=== PATIENT | male | born 1940 | race Caucasian/White ===

== ENCOUNTER → 2017-02-20 | Outpatient (CLI) | payer OTHER ==
[~2017-02-20] MED LIST: IOPAMIDOL (ISOVUE-M 300) 15 ML VIAL ONE; LIDO/EPI 1% **for epidural** 30 ML SDV ONE; LIDOCAINE 1% 300 MG/30 ML SDV ONE
== END ==
LOC: FIMAGING 09:00
PROVIDERS: ATTEND Neurological Surgery
PROC: 3E0S3KZ Introduction of Other Diagnostic Substance into Epidural Space, Percutaneous Approach (ICD-10-PCS; principal; 2017-02-20)
DX: M54.2 Cervicalgia (principal); M54.5 Low back pain; R26.89 Other abnormalities of gait and mobility; M50.021 Cervical disc disorder at C4-C5 level with myelopathy; M48.02 Spinal stenosis, cervical region; M50.30 Other cervical disc degeneration, unspecified cervical region; M48.06 Spinal stenosis, lumbar region; M51.36 Other intervertebral disc degeneration, lumbar region; M51.37 Other intervertebral disc degeneration, lumbosacral region; M48.07 Spinal stenosis, lumbosacral region; K80.20 Calculus of gallbladder without cholecystitis without obstruction
CPT/HCPCS: 62305; 72126; 72132; 72270; Q9967

== ENCOUNTER 2017-05-09 05:14 | Inpatient (IN) | payer OTHER ==
--- NOTE | 2017-05-08 15:11 | PDGENHP ---
History and Physical - History of Present Illness CONTROL # [id number] STATUS APPROVED SPECIALITY CONTRACT ADMINISTRATION MANAGER PATIENT JAMIR MARINA DATE 1940 [ 76 yy 5 mm 0 dd ] ENC DATE 03/01/2017 1:00:00 PM PROVIDER JANNET GRANDA APPROVED BY JANNET LIZAMA ON 03/05/2017 9:30:20 AM REVISION DATE CC/HPI Describe the reason for today's visit Lumbar Spine Mr Jamir is a 76 year old gentleman who has been experiencing painful symptoms for approximately 4-5 years. He describes his symptoms as lower back pain which is equal on both sides. He also feels he has bilateral leg weakness. He states he has been falling a lot but has not fallen in about one month. He states he usually falls backwards. Srini has a vagal nerve stimulator that was placed by Dr Arias for depression. He presents with his today to review a CT of the lumbar spine. Srini feels his symptoms are constant and they get worse with standing. Srini participated in PT which was not beneficial. He has not received injections or taken oral steroids. He does not taken NSAIDs, he is on Coumadin , his director electrical engineering is Dr Aly. He presents today with new CT myleogram of lumbar and cervical spine. He has been seen by Dr Gilman for his balance issues which she ruled out with some testing. She recommended he follow up with opth regarding his pupils not reacting to light and unequal. He does not feel his leg weakness has improved but his lower back pain has decreased slightly in severity. ALLERGIES [ 1 ] Date Added: 02/05/2017 10:47:04 AM Allergy: MORPHINE [ 2 ] Date Added: 02/05/2017 10:47:25 AM Allergy: PENICILLINS [ 3 ] Date Added: 02/05/2017 10:49:01 AM Allergy: SHELLFISH ALLERGY Note(s): ALLERGIC TO BIVALVIA VITALS [ 1 ] Date: 03/01/2017 12:34:51 PM Height : 74.00 inch. 187.96 cm Weight : 222.00 lbs. 100.7 kg B M I: 28.50 Temperature : 98.20 F. 36.78 C Blood Pressure : 116 / 84 Pulse: 99 beats/minute PE Neurological Orientation Oriented to: Person Place Situation Time Upper Extremity Deltoid (C5-6) Bilaterally 5/5 Biceps-Brachialis (C5-6) Bilaterally 5/5 Triceps (C7-8) Bilaterally 5/5 Wrist extensors (C7-8) Bilaterally 5/5 Wrist Flexors (C7-8 T1) Bilaterally 5/5 Digits extensors (C6-8) Bilaterally 5/5 Thenar (C8-T) Bilaterally 5/5 Interossel (C8-T1) Bilaterally 5/5 Lower Extremity Iliosoas (L1-4) Bilaterally 5/5 Gluteus opal (L5-S1) Bilaterally 5/5 Quadriceps (L2-4) Bilaterally 5/5 Hamstrings (L4-5, S1) Bilaterally 5/5 Peronel (L4-5, S1) Bilaterally 5/5 Tibialis anterior (L4-5, S1) Bilaterally 5/5 Gasterocnemius-soleus (L5,S1-2) Bilaterally 5/5 Toes-extensors (L4-5,S1) Bilaterally 5/5 Toes-flexors (L5-S1-2) Bilaterally 5/5 Extensor Hallucis Longus Bilaterally 5/5 Gait Assissted Wheelchair ADDITIONAL ENCOUNTER INFORMATION This visit was face to face and 15-24 min long and over 50% of the time was spent on counseling and coordination of care. CPT/ICD 60563 - OFFICE OUTPATIENT VISIT 15 MINUTES [Qty] = 1 Click here for External Information related to this code Click here for Additional Information related to this code M48.06-Spinal stenosis, lumbar region Click here for External Information related to this code Click here for Additional Information related to this code M51.36-Other intervertebral disc degeneration, lumbar region Click here for External Information related to this code Click here for Additional Information related to this code M54.5-Low back pain Click here for External Information related to this code Click here for Additional Information related to this code R26.89-Other abnormalities of gait and mobility Click here for External Information related to this code Click here for Additional Information related to this code M48.02-Spinal stenosis, cervical region ASMT/PLAN/REFERRALS Srini Duarte has leg weakness and terrible low back pain. he did not have a concerning compressive lesion in his cervical spine and he is still seeing neurology for a full workup but he has really terrible spinal stenosis at L45 and i suggested that he have surgery for this henry. He will need cardiac clearance. M48.02 - Spinal stenosis, cervical region M48.06 - Spinal stenosis, lumbar region M51.36 - Other intervertebral disc degeneration, lumbar region M54.5 - Low back pain R26.89 - Other abnormalities of gait and mobility History Information - Allergies/Home Medication List Allergies/Adverse Reactions: Shellfish *RETIRED-05/27/12 [Shellfish] Allergy (Severe, Verified 03/13/17 15:59 ) Anaphylaxis fluoxetine [Fluoxetine] Allergy (Intermediate, Verified 03/13/17 15:59) Rash penicillin V [Penicillin V] Allergy (Intermediate, Verified 03/13/17 15:59) Rash Home Medications: AMLODIPINE BESYLATE/BENAZEPRIL 03/13/17 [Last Taken Unknown] Abilify 03/13/17 [Last Taken Unknown] Allopurinol 03/13/17 [Last Taken Unknown] Benicar Hct 40-25 mg Tablet 03/13/17 [Last Taken Unknown] Bystolic 03/13/17 [Last Taken Unknown] Fetzima 03/13/17 [Last Taken Unknown] Klor-Con 10 meq (RX) 03/13/17 [Last Taken Unknown] LAMOTRIGINE 03/13/17 [Last Taken Unknown] LORAZEPAM 03/13/17 [Last Taken Unknown] Liothyronine Sodium 03/13/17 [Last Taken Unknown] Risperidone 03/13/17 [Last Taken Unknown] Tricor 03/13/17 [Last Taken Unknown] Warfarin Sodium 03/13/17 [Last Taken Unknown] Wellbutrin Xl 03/13/17 [Last Taken Unknown] I have personally reviewed and updated: family history, medical history, social history, surgical history - Social History Smoking Status: Never smoked
[2017-05-09] MEDS ORDERED: ceFAZolin 2 GM/DEXTROSE 100 ML IV ONE (05:46)
[2017-05-09] MEDS ORDERED: LIDOCAINE 1% 2 ML INJ ID PRN (05:48)
[2017-05-09] MEDS ORDERED: LR 1,000 ML IV ONE (05:48)
[2017-05-09 06:27] LABS: % IMMATURE GRANULYOCYTES 0.6 % (0.0-1.1); ABSOLUTE IMMATURE GRANULOCYTES 0.04 10^3/uL (0.00-0.10); ADD DIFF? NO; ADD MORPH? NO; ADD SCAN? NO; ATYPICAL LYMPHOCYTE FLAG 0 (0-99); FRAGMENT RBC FLAG 0 (0-99); HEMATOCRIT 35.9 % (40.0-51.0); HEMOGLOBIN 12.7 g/dL (13.7-17.5); LEFT SHIFT FLG 0 (0-99); LIPEMIA HEMOLYSIS FLAG 90 (0-99); MEAN CELL HEMOGLOBIN CONCENTR. 35.4 g/dL (32.4-36.7); MEAN CELL VOLUME 90.4 fL (81.5-99.8); PLATELET CLUMPS FLAG 0 (0-99); PLATELET COUNT 393 10^3/uL (150-400); RED BLOOD CELL COUNT 3.97 10^6/uL (4.40-6.38); RED CELL DISTRIBUTION WIDTH 14.1 % (11.5-15.2)
[2017-05-09 06:37] LABS: ANION GAP 16 mEq/L (8-16); CALCIUM 10.1 mg/dL (8.5-10.4); CARBON DIOXIDE 23 mEq/l (22-31); CHLORIDE 99 mEq/L (97-110); GLOMERULAR FILTRATION RATE > 60; GLUCOSE 132 mg/dL (70-100); INR 1.1 (0.83-1.16); POTASSIUM 3.5 mEq/L (3.5-5.2); PROTIME(PATIENT) 14.1 SEC (12.0-15.0); SODIUM 138 mEq/L (134-144)
[2017-05-09] MEDS ORDERED: THROMBIN (BOVINE) 5,000 UNIT VIAL TP ONE (06:48)
[2017-05-09] MEDS ORDERED: DEPO METHYLPREDNISOLONE 40 MG/ML SDV ONE (06:48)
[2017-05-09] MEDS ORDERED: BACITRACIN 50,000 UNITS/10 ML SYR IRR ONE (06:48)
[2017-05-09] MEDS ORDERED: CHLORHEXIDINE GLUC HIBICLENS 118 ML BTL TP ONE (06:48)
--- NOTE | 2017-05-09 06:53 | PDHPUP ---
History & Physical Update H&P update statement: This history and physical update is based on an assessment of the patient which was completed after admission or registration (within 24 hours), but prior to the surgery/procedure. H&P update: H&P reviewed & patient examined, no change in patient's condition since H&P completed
--- NOTE | 2017-05-09 07:12 | PDANEPAE ---
ANE History of Present Illness here for lami. Weakness and falls from lumbar stenosis ANE Past Medical History - Cardiovascular History Hx Hypertension: Yes Hx Arrhythmias: No Hx Chest Pain: No Hx Coronary Artery / Peripheral Vascular Disease: No Hx CHF / Valvular Disease: No Hx Palpitations: No Cardiovascular History Comment: A fib- on Warfarin - Pulmonary History Hx COPD: No Hx Asthma/Reactive Airway Disease: No Hx Recent Upper Respiratory Infection: No Hx Oxygen in Use at Home: No O2 in Use at Home (L/minute): 2L NC at night w/ CPAP Hx Sleep Apnea: Yes Sleep Apnea Screening Result - Last Documented: Positive Pulmonary History Comment: CPAP x 15 yrs - Neurologic History Hx Cerebrovascular Accident: No Hx Seizures: No Hx Dementia: No - Endocrine History Hx Diabetes: No Hypothyroid: No Hyperthyroid: No Obesity: moderate - Renal History Hx Renal Disorders: No - Liver History Hx Hepatic Disorders: No - Neurological & Psychiatric Hx Hx Neurological and Psychiatric Disorders: Yes Neurological / Psychiatric History Comment: bipolar- managed w/VNS and Rx. Low back pain. Hx of falling. - Cancer History Cancer History Comment: Prostate- tx w/radiation will undergo more tx 05-03. - Congenital Disorder History Hx Congenital Disorders: No - GI History Hx Gastrointestinal Disorders: Yes Gastrointestinal History Comment: occ heartburn - Chronic Pain History Chronic Pain: Yes (back) - Surgical History Prior Surgeries: L total knee,. R leg ORIF. L shoulder rotator cuff x2. VNS ( vagus nerve stimulator)used for bipolar (+ battery change appro 2014). L Lg toe "shattered". Prostatectomy 2009 ANE Review of Systems Review of systems is: negative - Exercise capacity Exercise capacity: <4 METS METS (RN): 4 METS ANE Patient History - Allergies Allergies/Adverse Reactions: Shellfish *RETIRED-05/27/12 [Shellfish] Allergy (Severe, Verified 03/13/17 15:59 ) Anaphylaxis fluoxetine [Fluoxetine] Allergy (Intermediate, Verified 03/13/17 15:59) Rash penicillin V [Penicillin V] Allergy (Intermediate, Verified 03/13/17 15:59) Rash - Home Medications Home Medications: AMLODIPINE BESYLATE/BENAZEPRIL 03/13/17 [Last Taken 05/08/17] Abilify 03/13/17 [Last Taken 05/08/17] Allopurinol 03/13/17 [Last Taken 05/08/17] Benicar Hct 40-25 mg Tablet 03/13/17 [Last Taken 05/08/17] Bystolic 03/13/17 [Last Taken 05/08/17] Fetzima 03/13/17 [Last Taken 05/08/17 20:00] Klor-Con 10 meq (RX) 03/13/17 [Last Taken 05/08/17] LAMOTRIGINE 03/13/17 [Last Taken 05/08/17] LORAZEPAM 03/13/17 [Last Taken 05/08/17] Liothyronine Sodium 03/13/17 [Last Taken 05/08/17] Risperidone 03/13/17 [Last Taken 05/08/17] Tricor 03/13/17 [Last Taken 05/08/17] Warfarin Sodium 03/13/17 [Last Taken 05/05/17] Wellbutrin Xl 03/13/17 [Last Taken 05/08/17] - NPO status NPO Status: no food or drink >8 hours NPO Since - Liquids (Date): 05/08/17 NPO Since - Liquids (Time): 20:00 NPO Since - Solids (Date): 05/08/17 NPO Since - Solids (Time): 18:00 - Smoking Hx Smoking Status: Never smoked ANE Labs/Vital Signs - Labs Result Diagrams: 05/09/17 06:20 05/09/17 06:20 - Vital Signs Height: 190.5 cm Weight: 99.79 kg ANE Physical Exam - Airway Neck exam: FROM Mallampati Score: Class 2 Mouth exam: normal dental/mouth exam - Pulmonary Pulmonary: no respiratory distress - Cardiovascular Cardiovascular: regular rate and rhythym - ASA Status ASA Status: III ANE Anesthesia Plan Anesthesia Plan: general endotracheal anesthesia
[2017-05-09] MEDS ORDERED: BUPIVACAINE/EPI 0.5% 30 ML SDV ONE (07:15)
[2017-05-09] MEDS ORDERED: fentaNYL 100 MCG/2 ML INJ ONE (07:17)
[2017-05-09] MEDS ORDERED: PROPOFOL/EMULSION 500 MG/50 ML BOTTLE IV ONE (07:17)
[2017-05-09] MEDS ORDERED: MAGNESIUM HYDROXIDE 30 ML UDCUP PO PRN (07:40)
[2017-05-09] MEDS ORDERED: HYDROCODONE/APAP 5/325 TAB PO PRN (07:40)
[2017-05-09] MEDS ORDERED: BISACODYL 10 MG SUPP PR PRN (07:40)
[2017-05-09] MEDS ORDERED: LACTULOSE 20 GM/30 ML UDCUP PO PRN (07:40)
[2017-05-09] MEDS ORDERED: oxyCODONE IR 5 MG TAB PO PRN (07:40)
[2017-05-09] MEDS ORDERED: POLYETHYLENE GLYCOL 3350 17 GM PKT PO PRN (07:40)
[2017-05-09] MEDS ORDERED: ONDANSETRON 4 MG/2 ML VIAL IVP PRN (07:40)
[2017-05-09] MEDS ORDERED: NS W/ 20 KCl/L 1,000 ML IV SCH (07:45)
--- NOTE | 2017-05-09 07:54 | CPEKG ---
Heart Rate: 136 RR Interval: 441 QRSD Interval: 98 QT Interval: 352 QTC Interval: 530 QRS [place]: -29 T Wave [place]: 75 EKG Severity - ABNORMAL ECG - EKG Impression: ATRIAL FIBRILLATION, V-RATE 101-161 EKG Impression: BORDERLINE LEFT AXIS DEVIATION EKG Impression: BORDERLINE T ABNORMALITIES, LATERAL LEADS EKG Impression: PROLONGED QT INTERVAL Electronically Signed By: Sky Spears 09-May-2017 15:32:52
--- NOTE | 2017-05-09 09:30 | SOAPPROG ---
SOAP Progress Note Assessment/Plan: Pt cancelled due to Afib. Call placed to Hospitalist (spoke with Emmie Sparks) to see in consult Spoke with Simeon Proctor MD with Cardiology to see as well 05/09/17 09:28 Objective: Vital Signs Temp Pulse Resp BP Pulse Ox 36.4 C 103 H 20 102/68 94 05/09/17 07:58 05/09/17 07:58 05/09/17 07:58 05/09/17 07:58 05/09/17 07:58 Laboratory Results 05/09/17 06:20 05/09/17 06:20 PT 14.1 SEC (12.0-15.0) 05/09/17 06:20 INR 1.10 (0.83-1.16) 05/09/17 06:20 ICD10 Worksheet Patient Problems: Problems Problem Status Onset Afib Acute Lumbar radicular pain Acute Lumbar stenosis Acute - ICD10 Problem Qualifiers (1) Lumbar stenosis (2) Lumbar radicular pain (3) Afib Qualifiers: Atrial fibrillation type: A
[2017-05-09] MEDS ORDERED: OLMESARTAN PO SCH (10:30)
[2017-05-09] MEDS ORDERED: HYDROCHLOROTHIAZIDE PO SCH (10:30)
[2017-05-09] MEDS ORDERED: [UNRECOGNIZED DRUG - OTHER] PO SCH (10:30)
[2017-05-09] MEDS ORDERED: NON-FORMULARY NEW DRUG (Potassium Chloride [Klor-Con 10] 10 MEQ) PO SCH (10:30)
[2017-05-09] MEDS ORDERED: NEBIVOLOL HCL 20 MG PO SCH (10:30)
--- NOTE | 2017-05-09 10:33 | PDGENHP ---
History and Physical - Chief Complaint Acute back pain - History of Present Illness Primary diesel mechanic helper: Dr. Aly Primary neurologist: Dr. Gilman Primary orthopedist: Dr. Tamayo HPI: 76-year-old male presenting with acute back pain characterized as constant , exacerbated with standing, no relief after trial of physical therapy, resulting in associated mechanical falls with retropulsion in the setting of bilateral lower extremity paresis. The patient began experiencing these falls approximately 1 month ago and they have been recurrent, resulting in numerous presentations to the [facility] [place] 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 Due to the high fall risk and inability to manage the pain in his back, the patient has been scheduled for a neurosurgical procedure at L4-L5 for severe spinal stenosis on 05/09/2017. During preop evaluation, the patient was noted to be in rapid AFib and he was transferred to the medical floor, surgery was postponed. Of note, the patient did not take any of his home medications on the morning of this presentation. The patient reports that he has a symptomatic atrial fibrillation and he is unaware how fast his heart rate is at home, he is unaware when he is in atrial fibrillation. He does report that while he has been at [facility], he has not been experiencing complications of rapid AFib; he otherwise denies any infectious symptoms presently. History Information - Allergies/Home Medication List Allergies/Adverse Reactions: Shellfish *RETIRED-05/27/12 [Shellfish] Allergy (Severe, Verified 03/13/17 15:59 ) Anaphylaxis fluoxetine [Fluoxetine] Allergy (Intermediate, Verified 03/13/17 15:59) Rash penicillin V [Penicillin V] Allergy (Intermediate, Verified 03/13/17 15:59) Rash Home Medications: ARIPiprazole [Abilify 2 mg (*)] 1 mg PO DAILY 05/09/17 [Last Taken 05/08/17] Allopurinol [Allopurinol 300 MG (RX)] 300 mg PO DAILY 05/09/17 [Last Taken 05/08] Amlodipine Besylate/Benazepril [Amlodipine-Benazepril 10-20 mg] 1 each PO DAILY 05/09/17 [Last Taken 05/08/17] Cholecalciferol Vit D3 [Vitamin D3 (*)] 2,000 units PO DAILY 05/09/17 [Last Taken 05/08/17] FENOFIBRATE 160 mg PO HS 05/09/17 [Last Taken 05/08/17] Levomilnacipran HCl [Fetzima] 80 mg PO HS 05/09/17 [Last Taken 05/08/17] Liothyronine Sodium [Cytomel 25 mcg (*)] 50 mcg PO DAILY 05/09/17 [Last Taken ] Minocycline HCl [Minocin] 100 mg PO DAILY 05/09/17 [Last Taken 05/08/17] Nebivolol HCl [Bystolic] 20 mg PO DAILY 05/09/17 [Last Taken 05/08/17] Olmesartan/Hydrochlorothiazide [Benicar Hct 40-25 mg Tablet] 1 each PO DAILY [Last Taken 05/08/17] Potassium Chloride [Klor-Con 10] 10 meq PO DAILY 05/09/17 [Last Taken 05/08/17] Warfarin Sodium [Coumadin 5MG (*)] 2.5 mg PO SA@16 05/09/17 [Last Taken 05/05/17 ] Warfarin Sodium [Coumadin 5MG (*)] 5 mg PO SUMOTUWETHFR@16 05/09/17 [Last Taken 05/04/17] buPROPion SR [Wellbutrin 150mg SR (*)] 300 mg PO DAILY 05/09/17 [Last Taken ] lamoTRIgine [Lamictal] 200 mg PO DAILY 05/09/17 [Last Taken 05/08/17] traMADol [Ultram 50 mg (*)] 50 - 100 mg PO Q4-6PRN PRN 05/09/17 [Last Taken ] I have personally reviewed and updated: family history, medical history, social history, surgical history - Past Medical History atrial fibrillation (Persistent with cardioversions in 2009), hypertension Additional medical history: Anisocoria. Obstructive sleep apnea on CPAP. GERD. Prostate cancer with radiation therapy. Bipolar disease. Chronic lower back pain secondary to severe spinal stenosis. Right upper extremity wound infection with recent wound VAC removal - Surgical History Additional surgical history: Right humerus fracture repair attempt this past week. Left total knee replacement. Right ORIF. Left shoulder x2. Vagal nerve stimulator. Prostate surgery 2009 - Family History Additional family history: No family history of venous thromboembolism, his father had a CVA - Social History Smoking Status: Never smoked Alcohol Use: Occasionally (None recent) Drug Use: None Additional social history: Lives in [place] Review of Systems ROS: 10pt was reviewed & negative except for what was stated in HPI & below Muscolosketal: Reports: back pain Physical Exam Temp Pulse Resp BP Pulse Ox 36.9 C 147 H 18 142/96 H 96 05/09/17 09:31 05/09/17 09:31 05/09/17 09:31 05/09/17 09:31 05/09/17 09:31 Constitutional: no apparent distress, appears nourished, not in pain, chronically ill appearing Eyes: anicteric sclera, EOMI, other (Anisocoria) Ears, Nose, Mouth, Throat: moist mucous membranes, hearing normal, ears appear normal, no oral mucosal ulcers Cardiovascular: irregularly irregular, tachycardia, edema (Right upper extremity with rapid), No systolic murmur Respiratory: no respiratory distress, no rales or rhonchi, clear to auscultation Gastrointestinal: normoactive bowel sounds, soft, non-tender abdomen, no palpable masses Genitourinary: no bladder fullness, no bladder tenderness Skin: other (No erythema around the right upper extremity surgical site, no induration) Neurologic: AAOx3, sensation intact bilaterally, No weakness, No facial droop Psychiatric: interacting appropriately, not anxious, not encephalopathic, thought process linear Lab Data & Imaging Review 05/09/17 06:20 05/09/17 06:20 WBC 6.77 10^3/uL (3.80-9.50) 05/09/17 06:20 RBC 3.97 10^6/uL (4.40-6.38) L 05/09/17 06:20 Hgb 12.7 g/dL (13.7-17.5) L 05/09/17 06:20 Hct 35.9 % (40.0-51.0) L 05/09/17 06:20 MCV 90.4 fL (81.5-99.8) 05/09/17 06:20 MCH 32.0 pg (27.9-34.1) 05/09/17 06:20 MCHC 35.4 g/dL (32.4-36.7) 05/09/17 06:20 RDW 14.1 % (11.5-15.2) 05/09/17 06:20 Plt Count 393 10^3/uL (150-400) 05/09/17 06:20 MPV 10.0 fL (8.7-11.7) 05/09/17 06:20 Neut % (Auto) 72.2 % (39.3-74.2) 05/09/17 06:20 Lymph % (Auto) 15.8 % (15.0-45.0) 05/09/17 06:20 [place] % (Auto) 8.6 % (4.5-13.0) 05/09/17 06:20 Eos % (Auto) 1.9 % (0.6-7.6) 05/09/17 06:20 Baso % (Auto) 0.9 % (0.3-1.7) 05/09/17 06:20 Nucleat RBC Rel Count 0.0 % (0.0-0.2) 05/09/17 06:20 Absolute Neuts (auto) 4.89 10^3/uL (1.70-6.50) 05/09/17 06:20 Absolute Lymphs (auto) 1.07 10^3/uL (1.00-3.00) 05/09/17 06:20 Absolute Monos (auto) 0.58 10^3/uL (0.30-0.80) 05/09/17 06:20 Absolute Eos (auto) 0.13 10^3/uL (0.03-0.40) 05/09/17 06:20 Absolute Basos (auto) 0.06 10^3/uL (0.02-0.10) 05/09/17 06:20 Absolute Nucleated RBC 0.00 10^3/uL (0-0.01) 05/09/17 06:20 Immature Gran % 0.6 % (0.0-1.1) 05/09/17 06:20 Immature Gran # 0.04 10^3/uL (0.00-0.10) 05/09/17 06:20 PT 14.1 SEC (12.0-15.0) 05/09/17 06:20 INR 1.10 (0.83-1.16) 05/09/17 06:20 Sodium 138 mEq/L (134-144) 05/09/17 06:20 Potassium 3.5 mEq/L (3.5-5.2) 05/09/17 06:20 Chloride 99 mEq/L (97-110) 05/09/17 06:20 Carbon Dioxide 23 mEq/l (22-31) 05/09/17 06:20 Anion Gap 16 mEq/L (8-16) 05/09/17 06:20 BUN 15 mg/dL (7-23) 05/09/17 06:20 Creatinine 1.0 mg/dL (0.7-1.3) 05/09/17 06:20 Estimated GFR > 60 05/09/17 06:20 Glucose 132 mg/dL (70-100) H 05/09/17 06:20 Calcium 10.1 mg/dL (8.5-10.4) 05/09/17 06:20 Visualized and Interpreted EKG results: Yes EKG Interpretation: Positive for: other (Atrial fibrillation with a rate of around 130, no ST depressions) Assessment & Plan Assessment: 76-year-old male presents with severe spinal stenosis requiring neurosurgery, complicated by persistent atrial fibrillation with acute rapid ventricular response Plan: 1. Persistent atrial fibrillation. Acute RVR, new problem this provider, further workup indicated. Most likely precipitating cause is holding the patient's Bystolic this morning, as the patient reports no acute episodes of RVR while at [facility], and the patient is chronically asymptomatic from his AFib -reviewed outside records including discharge summary by Dr. Law from 2016 and it does not mention any recent complications w/ Afib RVR -there is no evidence of infection on physical exam -would recommend giving his home dose of Bystolic 20 mg now, and dosing tomorrow morning prior to possible surgery to avoid recurrence -recommend continuing to monitor the patient's electrolytes and CBC to ensure that there are no electrolyte abnormalities or indicators of infection -will also recommend on wrapping his right upper extremity to expose the arm and ensure there are no areas of cellulitis, no areas of edema which would warrant right upper extremity ultrasound for further evaluation -give 1 dose of oral potassium now -does not require DC cardioversion at this time -continue holding Coumadin -appreciate Cardiology consultation 2. Severe spinal stenosis. Acute pain, tramadol as needed, recommend proceeding with surgery tomorrow morning if AFib RVR is controlled -discussed with Manny Guardado, we agreed that hospital Medicine will serve as the primary service for this patient, neurosurgery will consult, providing the spinal surgery as soon as safely possible -bowel regimen ordered -incentive spirometer -SCDs 3. Bipolar disease. Chronic, continue home medications 4. Obstructive sleep apnea. CPAP at night 5. Right upper extremity fracture. Patient has recently had surgery for this and reportedly the pin was unsuccessful -continue to monitor for areas of cellulitis, DVT -continue to wrap to reduce edema 6. Hypertension. Chronic, continue patient's home medications Diet. Regular, NPO after midnight Prophylaxis. High risk patient, SCDs, hold pharmacologic given upcoming surgery Code. Full per patient, is his MDPOA Disposition. Anticipated discharge uncertain this time, anticipated length stay is greater than 48 hours warranting inpatient admission status for reasonable medical necessity including severe spinal stenosis requiring inpatient lumbar surgery complicated by persistent atrial fibrillation with acute rapid ventricular response requiring immediate attention.
[2017-05-09] MEDS: SENNOSIDES/DOCUSATE SODIUM TAB PO SCH ×2 (10:51→20:00)
[2017-05-09] MEDS: ALLOPURINOL 300 MG TAB PO SCH (10:52)
[2017-05-09] MEDS: CHOLECALCIFEROL VIT D3 1,000 UNITS TAB PO SCH (10:52)
[2017-05-09] MEDS: buPROPion SR 150 MG TAB PO SCH (10:52)
[2017-05-09] MEDS ORDERED: BENAZEPRIL HCL 20 MG TAB PO ONE (11:00)
[2017-05-09] MEDS ORDERED: POTASSIUM CL 10 MEQ TAB PO SCH (11:00)
[2017-05-09] MEDS: LIOTHYRONINE SODIUM 25 MCG TAB PO SCH (11:08)
[2017-05-09] MEDS: ARIPiprazole 2 MG TAB PO SCH (11:08)
[2017-05-09] MEDS: MINOCYCLINE HCL 50 MG CAP PO SCH (11:08)
[2017-05-09] MEDS: NEBIVOLOL HCL 5 MG TAB PO SCH (11:18)
[2017-05-09] MEDS: POTASSIUM CL 10 MEQ TAB PO SCH (12:05)
[2017-05-09] MEDS: lamoTRIgine 100 MG TAB PO SCH (12:05)
[2017-05-09] MEDS: PANTOPRAZOLE SODIUM 40 MG TAB PO SCH (16:57)
[2017-05-09] MEDS: LEVOMILNACIPRAN HCL 80 MG PO SCH (20:00)
[2017-05-09] MEDS ORDERED: Fenofibrate [Fenofibrate] 160 MG PO SCH (21:00)
[2017-05-10 05:51] LABS: % IMMATURE GRANULYOCYTES 0.8 % (0.0-1.1); ABSOLUTE IMMATURE GRANULOCYTES 0.04 10^3/uL (0.00-0.10); ADD DIFF? NO; ADD MORPH? NO; ADD SCAN? NO; ATYPICAL LYMPHOCYTE FLAG 0 (0-99); FRAGMENT RBC FLAG 0 (0-99); HEMOGLOBIN 11.9 g/dL (13.7-17.5); LEFT SHIFT FLG 0 (0-99); LIPEMIA HEMOLYSIS FLAG 90 (0-99); MEAN CELL HEMOGLOBIN 31.3 pg (27.9-34.1); MEAN CELL VOLUME 92.1 fL (81.5-99.8); MEAN PLATELET VOLUME 10.3 fL (8.7-11.7); PLATELET CLUMPS FLAG 0 (0-99); PLATELET COUNT 377 10^3/uL (150-400); RED CELL DISTRIBUTION WIDTH 14.1 % (11.5-15.2)
[2017-05-10 06:12] LABS: ANION GAP 15 mEq/L (8-16); CALCIUM 9.8 mg/dL (8.5-10.4); CARBON DIOXIDE 24 mEq/l (22-31); CHLORIDE 100 mEq/L (97-110); CREATININE 1.1 mg/dL (0.7-1.3); GLOMERULAR FILTRATION RATE > 60; GLUCOSE 122 mg/dL (70-100); POTASSIUM 3.5 mEq/L (3.5-5.2); SODIUM 139 mEq/L (134-144)
--- NOTE | 2017-05-10 07:52 | NEUSURGPN ---
Assessment/Plan: Assessment: 76 yo male with BLE weakness that has surgery pending today for a L4 /5 laminectomy and decompression Plan: -pending surgery today -NPO after breakfast -PT/OT -pt marked and consents on chart - updated -call with any questions or concerns -IM on board-appreciate input and care -warning sings given -call with any issues 05/09/17 09:28 Subjective: Awake and alert. NAD. Eating/drinking and voiding. No f/c/n/v/d. Objective: AAO x 3, PERRLA/EOMI no droop CN 2-12 grossly intact +lt touch 5/5 BUE/BLE = CDI Neuro Check Frequency: per routine Urinary Catheter in Place: No - Physician Discussed Patient with .: Kevin Patient Seen by : Kevin Neurosurgery Physical Exam - Vitals, I&O, Labs I and O 05/09/17 05/10/17 05/11/17 05:59 05:59 05:59 Intake Total 350 Output Total 400 Balance -50 Weight 99.79 kg Intake: Oral (ml) 350 Output: Urine (ml) 400 Urinal 400 Vital Signs Temp Pulse Resp BP Pulse Ox 36.6 C 88 16 99/71 L 98 05/09/17 23:39 05/10/17 04:00 05/10/17 04:00 05/10/17 04:00 05/10/17 04:00 Laboratory Results 05/10/17 04:28 05/10/17 04:28 ICD10 Worksheet Patient Problems: Problems Problem Status Onset Afib Acute Lumbar radicular pain Acute Lumbar stenosis Acute - ICD10 Problem Qualifiers (1) Lumbar stenosis (2) Lumbar radicular pain (3) Afib Qualifiers: Atrial fibrillation type: A
[2017-05-10] MEDS: SENNOSIDES/DOCUSATE SODIUM TAB PO SCH ×2 (08:28→22:02)
[2017-05-10] MEDS: LIOTHYRONINE SODIUM 25 MCG TAB PO SCH (08:28)
[2017-05-10] MEDS: POTASSIUM CL 10 MEQ TAB PO SCH (08:29)
[2017-05-10] MEDS: CHOLECALCIFEROL VIT D3 1,000 UNITS TAB PO SCH (08:29)
[2017-05-10] MEDS: MINOCYCLINE HCL 50 MG CAP PO SCH (08:30)
[2017-05-10] MEDS: buPROPion SR 150 MG TAB PO SCH (08:30)
[2017-05-10] MEDS: NEBIVOLOL HCL 5 MG TAB PO SCH (08:31)
[2017-05-10] MEDS: PANTOPRAZOLE SODIUM 40 MG TAB PO SCH (08:31)
[2017-05-10] MEDS: ALLOPURINOL 300 MG TAB PO SCH (08:32)
[2017-05-10] MEDS: lamoTRIgine 100 MG TAB PO SCH (08:32)
[2017-05-10] MEDS: ARIPiprazole 2 MG TAB PO SCH (08:35)
--- NOTE | 2017-05-10 12:42 | HOSPPROG ---
Hospitalist Progress Note Assessment/Plan: 76-year-old male admitted because of falls and severe low back pain. Prior to admission the patient has had frequent falls is 1 of which resulted in a fracture of his right humerus. He is currently preoperative for a lumbar fusion. Patient is new to me today. -low back pain with radiculopathy. Patient is scheduled for lumbar fusion today. Patient is medically cleared for surgery. He has no complaints of chest pain or shortness of breath. Rhythm is currently stable in atrial fibrillation with good rate control. -atrial fibrillation, persistent: Currently in good rate control on beta blockers. Anticoagulation has been with Coumadin and his INR is currently normal. His last Coumadin dose was 5 days [employer]OP RANCH HAND. Monitor shows persistent atrial fibrillation with good rate control in the 70s and 80s. -hypertension: Good control -right humeral fracture status post plating. Arm is tender and painful and has limited range of motion but is healing well. The massiel have been removed as they were in place for 10 days. -plan: Patient is medically cleared for surgery today. We will continue to follow the patient postoperatively. Anticoagulation should be started as soon as possible postoperatively. We will consult with Neurosurgery regarding the timing restarting Coumadin. Subjective: No complaints of chest pain shortness of breath. Positive complaint of low back pain. Sutures are in place on the right shoulder and of wound is healing well. The sutures will be removed. Objective: Vital Signs Temp Pulse Resp BP Pulse Ox 36.4 C 88 24 H 121/78 H 97 05/10/17 08:18 05/10/17 08:18 05/10/17 08:18 05/10/17 08:18 05/10/17 08:18 Laboratory Results 05/10/17 04:28 05/10/17 04:28 05/09/17 05/10/17 05/11/17 05:59 05:59 05:59 Intake Total 350 240 Output Total 400 Balance -50 240 PT 14.1 SEC (12.0-15.0) 05/09/17 06:20 INR 1.10 (0.83-1.16) 05/09/17 06:20 - Time Spent With Patient Time Spent with Patient: greater than 35 minutes Time Spent with Patient: Greater than 35 minutes spent on this patients care, greater than 50% of time spent counseling, educating, and coordinating care regarding the above mentioned plan. - Pending Discharge Pending Discharge Within 24 Hours: No Pending Discharge Within 48 Hours: No - Physical Exam Constitutional: no apparent distress Eyes: PERRL Ears, Nose, Mouth, Throat: moist mucous membranes, hearing normal Cardiovascular: systolic murmur, irregularly irregular Respiratory: no respiratory distress, no rales or rhonchi, clear to auscultation , other (Patient wearing his CPAP mask.) Gastrointestinal: normoactive bowel sounds, soft, non-tender abdomen, no palpable masses Genitourinary: no bladder fullness Skin: warm Musculoskeletal: generalized weakness, other (Right arm is tender and painful as it is postoperative of a plating approximately 10 days [employer]OP RANCH HAND. Distal pulses 2 + skin warm and dry capillary refill good) Neurologic: AAOx3, CN II-XII Intact Psychiatric: interacting appropriately ICD10 Worksheet Patient Problems: Problems Problem Status Onset Afib Acute Lumbar radicular pain Acute Lumbar stenosis Acute
--- NOTE | 2017-05-10 14:37 | PDANEPAE ---
ANE History of Present Illness Severe lumbar spinal stenosis ANE Past Medical History - Cardiovascular History Hx Hypertension: Yes Hx Arrhythmias: No Hx Chest Pain: No Hx Coronary Artery / Peripheral Vascular Disease: No Hx CHF / Valvular Disease: No Hx Palpitations: No Cardiovascular History Comment: A fib- on Warfarin - Pulmonary History Hx COPD: No Hx Asthma/Reactive Airway Disease: No Hx Recent Upper Respiratory Infection: No Hx Oxygen in Use at Home: No O2 in Use at Home (L/minute): 2L NC at night w/ CPAP Hx Sleep Apnea: Yes Sleep Apnea Screening Result - Last Documented: Positive Pulmonary History Comment: CPAP x 15 yrs - Neurologic History Hx Cerebrovascular Accident: No Hx Seizures: No Hx Dementia: No - Endocrine History Hx Diabetes: No Hypothyroid: No Hyperthyroid: No Obesity: moderate - Renal History Hx Renal Disorders: No - Liver History Hx Hepatic Disorders: No - Neurological & Psychiatric Hx Hx Neurological and Psychiatric Disorders: Yes Neurological / Psychiatric History Comment: bipolar- managed w/VNS and Rx. Low back pain. Hx of falling. - Cancer History Cancer History Comment: Prostate- tx w/radiation will undergo more tx 05-03. - Congenital Disorder History Hx Congenital Disorders: No - GI History Hx Gastrointestinal Disorders: Yes Gastrointestinal History Comment: occ heartburn - Chronic Pain History Chronic Pain: Yes (back) - Surgical History Prior Surgeries: L total knee,. R leg ORIF. L shoulder rotator cuff x2. VNS ( vagus nerve stimulator)used for bipolar (+ battery change appro 2014). L Lg toe "shattered". Prostatectomy 2009 ANE Review of Systems - Exercise capacity METS (RN): 4 METS ANE Patient History - Allergies Allergies/Adverse Reactions: Shellfish *RETIRED-05/27/12 [Shellfish] Allergy (Severe, Verified 03/13/17 15:59 ) Anaphylaxis fluoxetine [Fluoxetine] Allergy (Intermediate, Verified 03/13/17 15:59) Rash penicillin V [Penicillin V] Allergy (Intermediate, Verified 03/13/17 15:59) Rash - Home Medications Home Medications: ARIPiprazole [Abilify 2 mg (*)] 1 mg PO DAILY 05/09/17 [Last Taken 05/08/17] Allopurinol [Allopurinol 300 MG (RX)] 300 mg PO DAILY 05/09/17 [Last Taken 05/08] Amlodipine Besylate/Benazepril [Amlodipine-Benazepril 10-20 mg] 1 each PO DAILY 05/09/17 [Last Taken 05/08/17] Cholecalciferol Vit D3 [Vitamin D3 (*)] 2,000 units PO DAILY 05/09/17 [Last Taken 05/08/17] FENOFIBRATE 160 mg PO HS 05/09/17 [Last Taken 05/08/17] Levomilnacipran HCl [Fetzima] 80 mg PO HS 05/09/17 [Last Taken 05/08/17] Liothyronine Sodium [Cytomel 25 mcg (*)] 50 mcg PO DAILY 05/09/17 [Last Taken ] Minocycline HCl [Minocin] 100 mg PO DAILY 05/09/17 [Last Taken 05/08/17] Nebivolol HCl [Bystolic] 20 mg PO DAILY 05/09/17 [Last Taken 05/08/17] Olmesartan/Hydrochlorothiazide [Benicar Hct 40-25 mg Tablet] 1 each PO DAILY [Last Taken 05/08/17] Potassium Chloride [Klor-Con 10] 10 meq PO DAILY 05/09/17 [Last Taken 05/08/17] Warfarin Sodium [Coumadin 5MG (*)] 2.5 mg PO SA@16 05/09/17 [Last Taken 05/05/17 ] Warfarin Sodium [Coumadin 5MG (*)] 5 mg PO SUMOTUWETHFR@16 05/09/17 [Last Taken 05/04/17] buPROPion SR [Wellbutrin 150mg SR (*)] 300 mg PO DAILY 05/09/17 [Last Taken ] lamoTRIgine [Lamictal] 200 mg PO DAILY 05/09/17 [Last Taken 05/08/17] traMADol [Ultram 50 mg (*)] 50 - 100 mg PO Q4-6PRN PRN 05/09/17 [Last Taken ] - NPO status NPO Since - Liquids (Date): 05/10/17 NPO Since - Liquids (Time): 08:30 NPO Since - Solids (Date): 05/10/17 NPO Since - Solids (Time): 08:30 - Smoking Hx Smoking Status: Never smoked - Alcohol Use Alcohol Use: Occasionally (None recent) ANE Labs/Vital Signs - Labs Result Diagrams: 05/10/17 04:28 05/10/17 04:28 - Vital Signs Blood Pressure: 108/77 Heart Rate: 76 Respiratory Rate: 14 O2 Sat (%): 96 Height: 185.42 cm Weight: 90.718 kg ANE Physical Exam - Airway Neck exam: decreased ROM Mallampati Score: Class 2 Mouth exam: normal dental/mouth exam, mnoaco - Pulmonary Pulmonary: no respiratory distress - Cardiovascular Cardiovascular: irregularly irregular - ASA Status ASA Status: III ANE Anesthesia Plan Anesthesia Plan: general endotracheal anesthesia
[2017-05-10] MEDS ORDERED: THROMBIN (BOVINE) 5,000 UNIT VIAL TP ONE (14:41)
[2017-05-10] MEDS ORDERED: BUPIVACAINE 0.25% 30 ML SDV ONE (14:41)
[2017-05-10] MEDS ORDERED: DEPO METHYLPREDNISOLONE 40 MG/ML SDV ONE (14:42)
[2017-05-10] MEDS ORDERED: BACITRACIN 50,000 UNITS/10 ML SYR IRR ONE ×2 (14:42→16:15)
[2017-05-10] MEDS ORDERED: BUPIVACAINE/EPI 0.5% 30 ML SDV ONE (14:49)
[2017-05-10] MEDS ORDERED: fentaNYL 100 MCG/2 ML INJ ONE ×2 (16:01→17:52)
[2017-05-10] MEDS ORDERED: ROCURONIUM 50 MG/5 ML VIAL ONE (16:02)
[2017-05-10] MEDS ORDERED: PROPOFOL 200 MG/20 ML VIAL ONE (16:02)
[2017-05-10] MEDS ORDERED: REMIFENTANIL HCL 1 MG VIAL ONE (16:14)
[2017-05-10] MEDS ORDERED: PROPOFOL/EMULSION 500 MG/50 ML BOTTLE IV ONE (16:14)
[2017-05-10] MEDS ORDERED: ceFAZolin 2 GM/DEXTROSE 100 ML IV ONE (16:30)
[2017-05-10] MEDS ORDERED: PHENYLEPHRINE HCL 100 MCG/ML SYR ONE ×2 (16:33→17:07)
[2017-05-10] MEDS ORDERED: ONDANSETRON 4 MG/2 ML VIAL IVP PRN (16:53)
[2017-05-10] MEDS ORDERED: HYDROmorphONE/DILAUDID 1 MG/ML INJ IVP PRN (16:53)
[2017-05-10] MEDS ORDERED: PROMETHAZINE HCL 25 MG/ML INJ IVP PRN (16:53)
[2017-05-10] MEDS ORDERED: NALOXONE HCL 0.4 MG/ML INJ IVP PRN (16:53)
[2017-05-10] MEDS ORDERED: fentaNYL 100 MCG/2 ML INJ IVP PRN (16:53)
[2017-05-10] MEDS ORDERED: DEXAMETHASONE 4 MG/ML VIAL ONE (17:52)
[2017-05-10] MEDS ORDERED: ONDANSETRON 4 MG/2 ML VIAL ONE (17:52)
[2017-05-10] MEDS ORDERED: SUGAMMADEX SODIUM 200 MG/2 ML VIAL IVP ONE (17:57)
[2017-05-10] MEDS ORDERED: diphenhydrAMINE 25 MG CAP PO PRN (18:18)
[2017-05-10] MEDS ORDERED: NS 1,000 ML IV SCH (18:30)
--- NOTE | 2017-05-10 18:34 | POSTANESTH ---
Post Anesthetic Evaluation Cardiovascular Status: Normal, Stable Respiratory Status: Normal, Stable Level of Consciousness/Mental Status: Alert and Oriented, Mildly Sleepy, Arousable Pain Control: Adequate, Prn Tx Ordered Nausea/Vomiting Control: Adequate, Prn Tx Ordered Complications Possibly Related to Anesthesia: None Noted
--- NOTE | 2017-05-10 18:38 | SOAPPROG ---
SOAP Progress Note Assessment/Plan: Post Op Visit: S: Awake and alert. NAD. Pt with expected lower back pain O: AFVSS/PERRLA/EOMI no droop CN 2-12 grossly intact +lt touch ROCÍO x 4 CDI A/P: 76 yo male that is s/p L4/5 laminectomy -orders in -call with any questions or concerns -pt understands and agrees 05/10/17 18:23 Objective: Vital Signs Temp Pulse Resp BP Pulse Ox 36.4 C 76 14 108/77 96 05/10/17 14:47 05/10/17 16:52 05/10/17 16:52 05/10/17 16:52 05/10/17 16:52 Laboratory Results 05/10/17 04:28 05/10/17 04:28 05/09/17 05/10/17 05/11/17 05:59 05:59 05:59 Intake Total 350 240 Output Total 400 Balance -50 240 PT 14.1 SEC (12.0-15.0) 05/09/17 06:20 INR 1.10 (0.83-1.16) 05/09/17 06:20 ICD10 Worksheet Patient Problems: Problems Problem Status Onset Afib Acute Lumbar radicular pain Acute Lumbar stenosis Acute - ICD10 Problem Qualifiers (1) Lumbar stenosis (2) Lumbar radicular pain (3) Afib Qualifiers: Atrial fibrillation type: A
--- NOTE | 2017-05-10 19:06 | GOP ---
[f rep st] OPERATIVE REPORT DATE OF OPERATION: 05/10/2017 SURGEON: Rik Brown MD NEUROSURGEON: Rik Brown MD CITY EDITOR: Manny ALBRIGHT. PREOPERATIVE DIAGNOSIS: Severe lumbar stenosis L4-5; lumbar degenerative disk disease, leg weakness . POSTOPERATIVE DIAGNOSIS: Severe lumbar stenosis L4-5; lumbar degenerative disk disease, leg weaknes s. PROCEDURE PERFORMED: Bilateral lumbar laminectomy L4-5 with decompression of the bilateral L5 nerve roots and the central thecal sac (35332), microscope. FINDINGS: ESTIMATED BLOOD LOSS: 25 cc. INDICATIONS: The patient is an elderly gentleman, who lives up in [place] and had been falling m ore and more lately. It is possible that his gait disturbance is related to severe lumbar stenosis. He actually fell and broke his arm and recently had surgery for this and was hospitalized as an in patient up in [place] and then transferred down here for surgery. Our plan was to do surgery yes terday but he had uncontrolled AFib and he was admitted to the hospital. A cardiac consultation was obtained and this problem was corrected, and we put him on the schedule for this the evening to go ahead and treat the lumbar stenosis. He had massiel in his right arm from his fracture and that bull bhargavi and he asked us to remove those. There were a couple massiel that the nurses were trying to re move from the area and they could not remove these earlier today and they asked us to do this under anesthesia and we told them that we would. The risk of the spinal surgery was discussed. He knew t here was a chance it may fail to eliminate any of his problems and that he may not see any improveme nt. He knew there was risk of infection as well as risk of CSF leak and/or nerve injury, and he wan jere to proceed despite the risks. He knew the surgical risks were higher given his premorbid status as well as his advanced age, and he accepted these risks. DESCRIPTION OF PROCEDURE: Patient was taken to the operating room and placed in supine position. G eneral anesthesia was begun. He was flipped prone onto the Rao frame. Care was taken to positio n him. Particularly, care was taken for positioning of the right arm. He had an axillary bandage a nd dressing in place. Apparently, he had a wound VAC at that location and he had massiel in the rig ht shoulder as well as massiel down the lateral aspect of the right arm. We began to remove the sta ples and there was some drainage of seropurulent material from the incision over the right arm itsel f. The shoulder incision appeared fine. There was no evidence of cellulitis. The skin was well ap proximated and it was unclear if there was really an infection. We did remove the massiel without d ifficulty. The ones in the shoulder, a couple of them had been tangled and were more difficult to r emove. These were removed with hemostats. He was sterilely prepped and draped in the usual fashion. A 2.5 cm incision was made above the L4-5 interspace. The subcutaneous tissue was dissected using Bovie cautery down to the fascia and a sub periosteal dissection was made down the L4 lamina and the rostral L5 lamina. Localizing x-ray was naila moon. A self-retaining retractor was placed. We then shot another localizing x-ray. We removed th e inferior L4 spinous process and a small portion of the rostral L5 spinous process. Under the scop e, we drilled bilateral laminae at L4-5 with bilateral medial facetectomies. We opened the ligament um flavum and decompressed the thecal sac. There was severe bilateral compression of the thecal sac due to facet arthropathy and ligamentum flavum hypertrophy, and we did decompress from the L5 pedic le to the L5 pedicle, all the way up to the inferior L4 pedicle. A nice decompression was obtained. The left side was somewhat more straight forward than the right. The right had a large really chuckie y prominent facet arthropathy, and it was very adherent to the dura. We took care to dissect this a way from the dura and we decompressed the L5 root in the lateral portion of the thecal sac all the w ay up into the foramen. For the exiting L4 nerve root, a foraminotomy was performed. We did likewi se on the left for the exiting L4 nerve root. We were happy with the quality of our decompression. The thecal sac now was completely open and clear from above the L4-[address] down to the m id pedicle of L5. We irrigated with antibiotic saline solution and closed the incision in multiple layers using Vicryl sutures. Steri-Strips were applied to the skin. The patient was reversed from anesthesia, extubated, and transferred to the recovery room in stable condition. COMPLICATIONS: None. /[id number]/MODL
[2017-05-10] MEDS: traMADol 50 MG TAB PO PRN (20:53)
[2017-05-10] MEDS: BENAZEPRIL HCL 20 MG TAB PO SCH (21:58)
[2017-05-10] MEDS: LEVOMILNACIPRAN HCL 80 MG PO SCH (21:58)
[2017-05-10] MEDS: FAMOTIDINE 20 MG TAB PO SCH (21:58)
[2017-05-10] MEDS: FENOFIBRATE 145 MG TAB PO SCH (22:01)
[2017-05-10] MEDS: ceFAZolin 2 GM/DEXTROSE 100 ML IV SCH (22:02)
[2017-05-11 05:21] LABS: % IMMATURE GRANULYOCYTES 0.5 % (0.0-1.1); ABSOLUTE IMMATURE GRANULOCYTES 0.04 10^3/uL (0.00-0.10); ADD DIFF? NO; ADD MORPH? NO; ADD SCAN? NO; ATYPICAL LYMPHOCYTE FLAG 0 (0-99); FRAGMENT RBC FLAG 0 (0-99); HEMATOCRIT 32.8 % (40.0-51.0); HEMOGLOBIN 11.3 g/dL (13.7-17.5); LEFT SHIFT FLG 0 (0-99); LIPEMIA HEMOLYSIS FLAG 90 (0-99); MEAN CELL HEMOGLOBIN 31.8 pg (27.9-34.1); MEAN CELL HEMOGLOBIN CONCENTR. 34.5 g/dL (32.4-36.7); MEAN CELL VOLUME 92.4 fL (81.5-99.8); MEAN PLATELET VOLUME 10.3 fL (8.7-11.7); PLATELET CLUMPS FLAG 10 (0-99); PLATELET COUNT 356 10^3/uL (150-400); RED BLOOD CELL COUNT 3.55 10^6/uL (4.40-6.38); RED CELL DISTRIBUTION WIDTH 14.1 % (11.5-15.2)
[2017-05-11 05:34] LABS: ANION GAP 13 mEq/L (8-16); CALCIUM 9.7 mg/dL (8.5-10.4); CARBON DIOXIDE 24 mEq/l (22-31); CHLORIDE 103 mEq/L (97-110); CREATININE 1.1 mg/dL (0.7-1.3); GLOMERULAR FILTRATION RATE > 60; GLUCOSE 129 mg/dL (70-100); POTASSIUM 4.2 mEq/L (3.5-5.2); SODIUM 140 mEq/L (134-144)
[2017-05-11] MEDS: traMADol 50 MG TAB PO PRN ×3 (06:40→20:21)
--- NOTE | 2017-05-11 07:45 | NEUSURGPN ---
Assessment/Plan: A/P: 76 yo male that is s/p L4/5 laminectomy POD1 -Pain controlled with tramadol, recommended ice to incision area if needed -retention manager consulted for help with placement once cleared by medicine from cardiac issues - Elbow cultures NGTD - Discussed with Dr. Brown -PT/OT -PLease notify NS with any change in neuro/motor exam Subjective: low back pain. Denies any new leg weakness, numbness or tingling Objective: NAD A&Ox3 MAEx4 5/ and equal in BLE. RUE limited to pain and patient states that that arm is "broken". LUE /. Dressing c/d/i - Physician Discussed Patient with : Kevin Neurosurgery Physical Exam - Vitals, I&O, Labs I and O 05/10/17 05/11/17 05/12/17 05:59 05:59 05:59 Intake Total 350 2870 Output Total 400 575 225 Balance -50 2295 -225 Weight 99.79 kg 90.718 kg Intake: Oral (ml) 350 595 IV Intake (ml) 1600 IV Infused (ml) 675 Ns 1,000 ml @ 75 mls/hr 675 IV CONT ELLIE Rx#: [id number] Output: Urine (ml) 400 550 225 Urinal 400 550 225 Estimated Blood Loss (ml) 25 Other: Intake Quantity NPO Sufficient Number of Voids Urinal 1 Microbiology 05/10/17 16:30 Gram Stain - Final Elbow - Eswab Vital Signs Temp Pulse Resp BP Pulse Ox 36.6 C 96 16 123/75 H 98 05/11/17 04:00 05/11/17 04:00 05/11/17 04:00 05/11/17 04:00 05/11/17 04:00 Laboratory Results 05/11/17 04:09 05/11/17 04:09 ICD10 Worksheet Patient Problems: Problems Problem Status Onset Afib Acute Lumbar radicular pain Acute Lumbar stenosis Acute
[2017-05-11] MEDS: MINOCYCLINE HCL 50 MG CAP PO SCH (09:28)
[2017-05-11] MEDS: SENNOSIDES/DOCUSATE SODIUM TAB PO SCH ×2 (09:29→20:22)
[2017-05-11] MEDS: NEBIVOLOL HCL 5 MG TAB PO SCH (09:29)
[2017-05-11] MEDS: BENAZEPRIL HCL 20 MG TAB PO SCH (09:30)
[2017-05-11] MEDS: CHOLECALCIFEROL VIT D3 1,000 UNITS TAB PO SCH (09:30)
[2017-05-11] MEDS: LIOTHYRONINE SODIUM 25 MCG TAB PO SCH (09:30)
[2017-05-11] MEDS: ARIPiprazole 2 MG TAB PO SCH (09:31)
[2017-05-11] MEDS: buPROPion SR 150 MG TAB PO SCH (09:31)
[2017-05-11] MEDS: lamoTRIgine 100 MG TAB PO SCH (09:32)
[2017-05-11] MEDS: ALLOPURINOL 300 MG TAB PO SCH (09:32)
[2017-05-11] MEDS: POTASSIUM CL 10 MEQ TAB PO SCH (09:33)
[2017-05-11] MEDS: FAMOTIDINE 20 MG TAB PO SCH ×2 (09:33→20:21)
[2017-05-11] MEDS: PANTOPRAZOLE SODIUM 40 MG TAB PO SCH (09:33)
[2017-05-11] MEDS: METHOCARBAMOL 750 MG TAB PO PRN (10:55)
--- NOTE | 2017-05-11 17:03 | HOSPPROG ---
Hospitalist Progress Note Assessment/Plan: 76-year-old male admitted because of falls and severe low back pain. Prior to admission the patient has had frequent falls , of which resulted in a fracture of his right humerus. He is currently preoperative for a lumbar fusion. -low back pain with radiculopathy. Patient underwent a bilateral lumbar laminectomy and his pain is much improved at this time. -atrial fibrillation, persistent: Currently in good rate control on beta blockers. Anticoagulation has been with Coumadin and his INR is currently normal. His last Coumadin dose was 6 days [employer]. Monitor shows persistent atrial fibrillation with good rate control in the 70s and 80s. -anticoagulation: Case discussed with Neurosurgery. We can start full-dose anticoagulation tomorrow on 05/12. At that time I will begin Lovenox and Coumadin. -hypertension: Good control -right humeral fracture status post plating. Arm is tender and painful and has limited range of motion but is healing well. The massiel have been removed as they were in place for 10 days. -plan: Patient doing well postop the lumbar laminectomy. He continues in stable atrial fibrillation. Will restart anticoagulation tomorrow. -disposition: Inpatient rehab is being considered a. This would probably be the best disposition for him and case management is working on that. Time: 35 minutes Subjective: Reports his back pain is much improved and considerably less. He continues to have right arm pain denies chest pain or shortness of breath cough or fever Objective: Vital Signs Temp Pulse Resp BP Pulse Ox 36.2 C 101 H 16 108/76 98 05/11/17 11:30 05/11/17 11:30 05/11/17 11:30 05/11/17 11:30 05/11/17 11:30 Microbiology 05/10/17 16:30 Gram Stain - Final Elbow - Eswab Laboratory Results 05/11/17 04:09 05/11/17 04:09 05/10/17 05/11/17 05/12/17 05:59 05:59 05:59 Intake Total 350 2870 Output Total 400 575 225 Balance -50 2295 -225 PT 14.1 SEC (12.0-15.0) 05/09/17 06:20 INR 1.10 (0.83-1.16) 05/09/17 06:20 - Time Spent With Patient Time Spent with Patient: greater than 35 minutes Time Spent with Patient: Greater than 35 minutes spent on this patients care, greater than 50% of time spent counseling, educating, and coordinating care regarding the above mentioned plan. - Pending Discharge Pending Discharge Within 24 Hours: No Pending Discharge Within 48 Hours: No - Physical Exam Constitutional: no apparent distress, chronically ill appearing Eyes: PERRL, anicteric sclera Ears, Nose, Mouth, Throat: moist mucous membranes, hearing normal Cardiovascular: irregularly irregular, pulses symmetric bilaterally, other ( Monitor shows atrial fibrillation in good rate control with a ventricular response in the 70s and 80s.) Respiratory: no respiratory distress, no rales or rhonchi, clear to auscultation , reduced air movement Gastrointestinal: normoactive bowel sounds, soft, non-tender abdomen, no palpable masses Genitourinary: no bladder fullness Skin: warm Musculoskeletal: generalized weakness Neurologic: AAOx3, CN II-XII Intact Psychiatric: interacting appropriately ICD10 Worksheet Patient Problems: Problems Problem Status Onset Lumbar stenosis Acute Lumbar radicular pain Acute Afib Acute
[2017-05-11] MEDS: FENOFIBRATE 145 MG TAB PO SCH (20:20)
[2017-05-11] MEDS: LEVOMILNACIPRAN HCL 80 MG PO SCH (20:23)
[2017-05-12] MEDS: LIOTHYRONINE SODIUM 25 MCG TAB PO SCH (07:25)
--- NOTE | 2017-05-12 08:10 | SOAPPROG ---
SOAP Progress Note Assessment/Plan: A/P: 76 yo male that is s/p L4/5 laminectomy POD2 - Pain controlled with tramadol, patient sleeping quietly - d/c to SNF on Sunday - Elbow cultures still NGTD - PT/OT - PLease notify NS with any change in neuro/motor exam 05/12/17 08:08 Subjective: patient sleeping well, no complaints per nursing Objective: Vital Signs Temp Pulse Resp BP Pulse Ox 36.7 C 90 18 113/60 93 05/11/17 23:24 05/11/17 23:24 05/11/17 23:24 05/11/17 23:24 05/11/17 23:24 Microbiology 05/10/17 16:30 Gram Stain - Final Elbow - Eswab Laboratory Results 05/11/17 04:09 05/11/17 04:09 05/11/17 05/12/17 05/13/17 05:59 05:59 05:59 Intake Total 2870 1920 Output Total 575 775 Balance 2295 1145 PT 14.1 SEC (12.0-15.0) 05/09/17 06:20 INR 1.10 (0.83-1.16) 05/09/17 06:20 patient sleeping, exam deferred, discussed with nursing who report no issues - Pending Discharge Pending Discharge Within 24 Hours: No Pending Discharge Within 48 Hours: Yes Pending Discharge Date: 05/14/17 Pending Discharge Time: 11:00 ICD10 Worksheet Patient Problems: Problems Problem Status Onset Afib Acute Lumbar radicular pain Acute Lumbar stenosis Acute
[2017-05-12] MEDS: buPROPion SR 150 MG TAB PO SCH (09:23)
[2017-05-12] MEDS: SENNOSIDES/DOCUSATE SODIUM TAB PO SCH ×2 (09:24→21:11)
[2017-05-12] MEDS: BENAZEPRIL HCL 20 MG TAB PO SCH (09:24)
[2017-05-12] MEDS: MINOCYCLINE HCL 50 MG CAP PO SCH (09:24)
[2017-05-12] MEDS: ARIPiprazole 2 MG TAB PO SCH (09:25)
[2017-05-12] MEDS: NEBIVOLOL HCL 5 MG TAB PO SCH (09:26)
[2017-05-12] MEDS: FAMOTIDINE 20 MG TAB PO SCH ×2 (09:26→21:11)
[2017-05-12] MEDS: CHOLECALCIFEROL VIT D3 1,000 UNITS TAB PO SCH (09:31)
[2017-05-12] MEDS: lamoTRIgine 100 MG TAB PO SCH (09:31)
[2017-05-12] MEDS: ALLOPURINOL 300 MG TAB PO SCH (09:31)
[2017-05-12] MEDS: PANTOPRAZOLE SODIUM 40 MG TAB PO SCH (09:31)
[2017-05-12] MEDS: POTASSIUM CL 10 MEQ TAB PO SCH (09:31)
--- NOTE | 2017-05-12 11:13 | HOSPPROG ---
Hospitalist Progress Note Assessment/Plan: 76-year-old male admitted because of falls and severe low back pain. Prior to admission the patient has had frequent falls , of which resulted in a fracture of his right humerus. Patient is status post a lumbar laminectomy on 05 10 and has been doing well. -low back pain with radiculopathy. Patient underwent a bilateral lumbar laminectomy and his pain is much improved at this time. Pain today is much improved -atrial fibrillation, persistent: Currently in good rate control on beta blockers. Anticoagulation has been with Coumadin and his INR is currently normal. 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 Monitor shows persistent atrial fibrillation with good rate control in the 70s and 80s. Review of monitor on the PCU shows he maintains atrial fibrillation in a good controlled rate without significant ectopy. -anticoagulation: Case discussed with Neurosurgery. We can start full-dose anticoagulation tomorrow on 05/12. Coumadin and Lovenox started today for full dose anticoagulation. -hypertension: Good control -right humeral fracture status post plating. Arm is tender and painful and has limited range of motion but is healing well. The massiel have been removed as they were in place for 10 days. -obstructive sleep apnea syndrome: Patient uses oxygen at night with his CPAP and this will be continued. He has his own CPAP machine. -anemia with a current hemoglobin of 11 without signs of blood loss. The anemia is probably of chronic disease -plan: Patient doing well postop the lumbar laminectomy. He continues in stable atrial fibrillation. Anticoagulation restarted today. -disposition: Patient will be discharged to [facility] rehab [facility] when a bed is available. This is expected by Lucia on 05/15 Time: 35 minutes Subjective: Reports he is feeling improved with less back pain. The right arm continues to be painful but is also improving. No complaints of chest pain shortness of breath fever cough nausea vomiting or dysuria. Objective: Vital Signs Temp Pulse Resp BP Pulse Ox 36.7 C 97 18 129/84 H 99 05/12/17 08:00 05/12/17 09:26 05/12/17 08:00 05/12/17 09:05/12/17 08:00 Microbiology 05/10/17 16:30 Gram Stain - Final Elbow - Eswab Laboratory Results 05/11/17 04:09 05/11/17 04:09 08/05/12/17 05/13/17 05:59 05:59 05:59 Intake Total 2870 1920 Output Total 575 775 Balance 2295 1145 PT 14.1 SEC (12.0-15.0) 05/09/17 06:20 INR 1.10 (0.83-1.16) 05/09/17 06:20 - Time Spent With Patient Time Spent with Patient: greater than 35 minutes Time Spent with Patient: Greater than 35 minutes spent on this patients care, greater than 50% of time spent counseling, educating, and coordinating care regarding the above mentioned plan. - Pending Discharge Pending Discharge Within 24 Hours: No Pending Discharge Within 48 Hours: Yes Pending Discharge Date: 05/14/17 Pending Discharge Time: 11:00 - Physical Exam Constitutional: no apparent distress, chronically ill appearing Eyes: PERRL, anicteric sclera Ears, Nose, Mouth, Throat: moist mucous membranes, hearing normal Cardiovascular: systolic murmur, irregularly irregular, other (His review of rhythm shows he is in atrial fibrillation and at times in sinus rhythm but primarily [place] atrial fibrillation without significant ectopy. Rate is well controlled.) Respiratory: no respiratory distress, no rales or rhonchi, reduced air movement , inspiratory crackles (A few inspiratory crackles are heard at the bases and incentive spirometer has been ordered) Gastrointestinal: normoactive bowel sounds, soft, non-tender abdomen, no palpable masses Genitourinary: no bladder fullness Skin: warm Musculoskeletal: generalized weakness Neurologic: AAOx3, CN II-XII Intact Psychiatric: interacting appropriately ICD10 Worksheet Patient Problems: Problems Problem Status Onset Lumbar stenosis Acute Lumbar radicular pain Acute Afib Acute
[2017-05-12] MEDS: ENOXAPARIN 100 MG/ML SYR SC SCH ×2 (12:12→21:12)
[2017-05-12] MEDS: traMADol 50 MG TAB PO PRN (14:15)
[2017-05-12] MEDS: WARFARIN SODIUM 5 MG TAB PO SCH (15:25)
[2017-05-12] MEDS: METHOCARBAMOL 750 MG TAB PO PRN (17:48)
[2017-05-12] MEDS: ACETAMINOPHEN 325 MG TAB PO PRN ×2 (18:46→23:07)
[2017-05-12] MEDS: FENOFIBRATE 145 MG TAB PO SCH (21:11)
[2017-05-12] MEDS: LEVOMILNACIPRAN HCL 80 MG PO SCH (21:12)
[2017-05-13] MEDS: ONDANSETRON DISINTEGRATING 4 MG TAB PO PRN (00:39)
[2017-05-13] MEDS: METHOCARBAMOL 750 MG TAB PO PRN (00:59)
--- NOTE | 2017-05-13 07:55 | SOAPPROG ---
LENORA Progress Note Assessment/Plan: A/P: 76 yo male that is s/p L4/5 laminectomy POD3 - Pain controlled with tramadol, patient doing quite well, says legs feel better - d/c to SNF on Tomorrow - Elbow cultures still NGTD - PT/OT - PLease notify NS with any change in neuro/motor exam 05/12/17 08:08 05/13/17 07:55 Subjective: no complaints Objective: Vital Signs Temp Pulse Resp BP Pulse Ox 36.6 C 101 H 18 136/99 H 92 05/13/17 04:00 05/13/17 04:00 05/13/17 04:00 05/13/17 04:00 05/13/17 04:00 Microbiology 05/10/17 16:30 Gram Stain - Final Elbow - Eswab Laboratory Results 05/11/17 04:09 05/11/17 04:09 05/12/17 05/13/17 05/14/17 05:59 05:59 05:59 Intake Total 1920 2850 Output Total 775 650 Balance 1145 2200 PT 14.1 SEC (12.0-15.0) 05/09/17 06:20 INR 1.10 (0.83-1.16) 05/09/17 06:20 AAOx3, full strength/sensation, no drift, dressings c/d/i - Pending Discharge Pending Discharge Within 24 Hours: Yes Pending Discharge Date: 05/14/17 Pending Discharge Time: 11:00 ICD10 Worksheet Patient Problems: Problems Problem Status Onset Afib Acute Lumbar radicular pain Acute Lumbar stenosis Acute
[2017-05-13] MEDS: ARIPiprazole 2 MG TAB PO SCH (11:16)
[2017-05-13] MEDS: lamoTRIgine 100 MG TAB PO SCH (11:18)
[2017-05-13] MEDS: buPROPion SR 150 MG TAB PO SCH (11:19)
[2017-05-13] MEDS: MINOCYCLINE HCL 50 MG CAP PO SCH (11:21)
[2017-05-13] MEDS: BENAZEPRIL HCL 20 MG TAB PO SCH (11:22)
[2017-05-13] MEDS: NEBIVOLOL HCL 5 MG TAB PO SCH (11:23)
[2017-05-13] MEDS: ALLOPURINOL 300 MG TAB PO SCH (11:23)
[2017-05-13] MEDS: PANTOPRAZOLE SODIUM 40 MG TAB PO SCH (11:26)
[2017-05-13] MEDS: CHOLECALCIFEROL VIT D3 1,000 UNITS TAB PO SCH (11:26)
[2017-05-13] MEDS: SENNOSIDES/DOCUSATE SODIUM TAB PO SCH ×2 (11:27→20:26)
[2017-05-13] MEDS: FAMOTIDINE 20 MG TAB PO SCH ×2 (11:27→20:26)
[2017-05-13] MEDS: POTASSIUM CL 10 MEQ TAB PO SCH (11:28)
[2017-05-13] MEDS: ENOXAPARIN 100 MG/ML SYR SC SCH ×2 (11:30→20:27)
[2017-05-13] MEDS ORDERED: NS 500 ML IV ONE (11:30)
[2017-05-13] MEDS ORDERED: ACETAMINOPHEN 500 MG TAB PO PRN (11:37)
[2017-05-13] MEDS: LIOTHYRONINE SODIUM 25 MCG TAB PO SCH (11:38)
--- NOTE | 2017-05-13 11:40 | HOSPPROG ---
Hospitalist Progress Note Assessment/Plan: # severe spinal stenosis s/p laminectomy by Dr Frances, POD#3 - will schedule apap, try to minimize narcotics # a-fib, persistent - ok'd for AC on 05/12 by neurosurgery - cont lovenox bridge to coumadin, check INR tomorrow - rates slightly high today; will follow and possibly give extra dose of bystolic # recent humeral fracture, non-union, infection - on minocycline - I have placed a call to Dr Tamayo's office to clarify they type of brace/ sling he requires # elbow swab - sent for GS and culture - exactly why I an unclear; NGTD # suspected acute on chronic encephalopathy - 08/16 on MMSE - minimize sedating meds # debilitation - working with PT/OT - needs placement (SNF vs inpatient rehab) # bipolar - cont abilify, wellbutrin, lamictal # hypothyroid Subjective: no complaints Objective: Vital Signs Temp Pulse Resp BP Pulse Ox 36.4 C 108 H 20 145/94 H 94 05/13/17 11:05 05/13/17 11:05 05/13/17 11:05 05/13/17 11:05 05/13/17 11:05 Microbiology 05/10/17 16:30 Gram Stain - Final Elbow - Eswab Laboratory Results 05/11/17 04:09 05/11/17 04:09 05/12/17 05/13/17 05/14/17 05:59 05:59 05:59 Intake Total 1920 2850 Output Total 775 650 Balance 1145 2200 PT 14.1 SEC (12.0-15.0) 05/09/17 06:20 INR 1.10 (0.83-1.16) 05/09/17 06:20 chart reviewed tele personally reviewed ECG personally reviewed ICD10 Worksheet Patient Problems: Problems Problem Status Onset Lumbar stenosis Acute Lumbar radicular pain Acute Afib Acute
[2017-05-13] MEDS: WARFARIN SODIUM 5 MG TAB PO SCH (16:33)
[2017-05-13] MEDS: FENOFIBRATE 145 MG TAB PO SCH (20:26)
[2017-05-13] MEDS: LEVOMILNACIPRAN HCL 80 MG PO SCH (20:29)
[2017-05-14] MEDS: METHOCARBAMOL 750 MG TAB PO PRN ×3 (01:13→21:23)
[2017-05-14 04:58] LABS: % IMMATURE GRANULYOCYTES 0.7 % (0.0-1.1); ABSOLUTE IMMATURE GRANULOCYTES 0.07 10^3/uL (0.00-0.10); ADD DIFF? NO; ADD MORPH? NO; ADD SCAN? NO; ATYPICAL LYMPHOCYTE FLAG 0 (0-99); FRAGMENT RBC FLAG 0 (0-99); HEMATOCRIT 32.9 % (40.0-51.0); HEMOGLOBIN 11.1 g/dL (13.7-17.5); LEFT SHIFT FLG 0 (0-99); LIPEMIA HEMOLYSIS FLAG 80 (0-99); MEAN CELL HEMOGLOBIN 30.9 pg (27.9-34.1); MEAN CELL HEMOGLOBIN CONCENTR. 33.7 g/dL (32.4-36.7); MEAN CELL VOLUME 91.6 fL (81.5-99.8); MEAN PLATELET VOLUME 10.5 fL (8.7-11.7); PLATELET CLUMPS FLAG 0 (0-99); PLATELET COUNT 390 10^3/uL (150-400); RED BLOOD CELL COUNT 3.59 10^6/uL (4.40-6.38); RED CELL DISTRIBUTION WIDTH 13.8 % (11.5-15.2)
[2017-05-14 05:04] LABS: INR 1.33 (0.83-1.16); PROTIME(PATIENT) 16.5 SEC (12.0-15.0)
[2017-05-14 05:10] LABS: ANION GAP 13 mEq/L (8-16); CALCIUM 9.9 mg/dL (8.5-10.4); CARBON DIOXIDE 24 mEq/l (22-31); CHLORIDE 98 mEq/L (97-110); CREATININE 0.8 mg/dL (0.7-1.3); GLOMERULAR FILTRATION RATE > 60; GLUCOSE 134 mg/dL (70-100); POTASSIUM 3.7 mEq/L (3.5-5.2); SODIUM 135 mEq/L (134-144)
[2017-05-14] MEDS: ONDANSETRON DISINTEGRATING 4 MG TAB PO PRN (07:51)
--- NOTE | 2017-05-14 07:55 | NEUSURGPN ---
Date of Surgery: 05/10/17 Post Op Day: 4 Assessment/Plan: Assessment: 76 yo male that is s/p L4/5 laminectomy POD #4 Plan: -Pain controlled with tramadol, patient doing quite well, says legs feel better -pt does have some nausea this am-getting treated with meds -plan to d/c to SNF today if cleared -Elbow cultures show staph coag neg-will speak with IM regarding this and plan -PT/OT-CPM -Please notify NS with any change in neuro/motor exam Subjective: Awake and alert. Pt with some nausea this am. No alarcon/neck/chest/abd or gu complaints. Objective: AAO x 3, PERRLA/EOMI no droop CN 2-12 grossly intact +lt touch 5/5 BUE/BLE = CDI to L spine Neuro Check Frequency: per routine - Physician Discussed Patient with : Kevin Patient Seen by : Kevin Neurosurgery Physical Exam - Vitals, I&O, Labs I and O 05/13/17 05/14/17 05/15/17 05:59 05:59 05:59 Intake Total 2850 1750 Output Total 650 Balance 2200 1750 Intake: Oral (ml) 2850 1750 Output: Urine (ml) 650 Urinal 650 Other: Intake Quantity Yes Sufficient Number of Voids Incontinence 3 Urinal 2 Number of Stools Urinal 0 Microbiology 05/10/17 16:30 Gram Stain - Final Elbow - Eswab Vital Signs Temp Pulse Resp BP Pulse Ox 36.7 C 115 H 17 142/103 H 93 05/14/17 07:28 05/14/17 07:28 05/14/17 07:28 05/14/17 07:28 05/14/17 07:28 Laboratory Results 05/14/17 04:25 05/14/17 04:25 ICD10 Worksheet Patient Problems: Problems Problem Status Onset Afib Acute Lumbar radicular pain Acute Lumbar stenosis Acute - ICD10 Problem Qualifiers (1) Lumbar stenosis (2) Lumbar radicular pain (3) Afib Qualifiers: Atrial fibrillation type: A
[2017-05-14] MEDS: NEBIVOLOL HCL 5 MG TAB PO SCH (08:53)
[2017-05-14] MEDS: lamoTRIgine 100 MG TAB PO SCH (08:53)
[2017-05-14] MEDS: FAMOTIDINE 20 MG TAB PO SCH ×2 (08:53→21:17)
[2017-05-14] MEDS: PANTOPRAZOLE SODIUM 40 MG TAB PO SCH (08:54)
[2017-05-14] MEDS: BENAZEPRIL HCL 20 MG TAB PO SCH (08:55)
[2017-05-14] MEDS: buPROPion SR 150 MG TAB PO SCH (08:55)
[2017-05-14] MEDS: ARIPiprazole 2 MG TAB PO SCH (08:56)
[2017-05-14] MEDS: LIOTHYRONINE SODIUM 25 MCG TAB PO SCH (08:57)
[2017-05-14] MEDS: MINOCYCLINE HCL 50 MG CAP PO SCH (08:58)
[2017-05-14] MEDS: ENOXAPARIN 100 MG/ML SYR SC SCH ×2 (08:59→21:18)
--- NOTE | 2017-05-14 09:53 | HOSPPROG ---
Hospitalist Progress Note Assessment/Plan: 76M admitted for lumbar lami. Transferred from [place] (hospitalized 04/26-). Admitted there for humerus fx. C/b non-union d/t recurrent falls s/p ORIF. Axillary infection requiring wound vac and short course of Vanc. Also, outpatient psychiatrist has recommended stopping lamictal - had been tapered off in [facility]. # severe spinal stenosis s/p laminectomy by Dr Brown, POD#4 - will schedule apap, try to minimize narcotics # a-fib, persistent - ok'd for AC on 05/12 by neurosurgery - cont lovenox bridge to coumadin, follow INR - rates slightly high today; will follow and possibly give extra dose of bystolic # recent humeral fracture, non-union s/p ORIF - I have placed a call to Dr Tamayo's office to clarify they type of brace/ sling he requires # axillary infection - ID will assess # elbow swab +[employer] - ID to consult, likely contaminant - wound care c/s # suspected acute on chronic encephalopathy - 08/16 on MMSE - minimize sedating meds # bipolar - cont abilify, wellbutrin, tape lamictal 200->100mg daily # debilitation - working with PT/OT - needs placement (SNF vs inpatient rehab) # hypothyroid # dispo - possible discharge tomorrow Subjective: no acute events; [place] chart reviewed, discussed with patient and Objective: Vital Signs Temp Pulse Resp BP Pulse Ox 36.7 C 115 H 17 142/103 H 93 05/14/17 07:28 05/14/17 07:28 05/14/17 07:28 05/14/17 07:28 05/14/17 07:28 Microbiology 05/10/17 16:30 Gram Stain - Final Elbow - Eswab Laboratory Results 05/14/17 04:25 05/14/17 04:25 05/13/17 05/14/17 05/15/17 05:59 05:59 05:59 Intake Total 2850 1750 Output Total 650 Balance 2200 1750 PT 16.5 SEC (12.0-15.0) H 05/14/17 04:25 INR 1.33 (0.83-1.16) H 05/14/17 04:25 - Physical Exam Constitutional: no apparent distress, not in pain Cardiovascular: no murmur, rub, or gallop, irregularly irregular Respiratory: no respiratory distress, no rales or rhonchi, clear to auscultation Gastrointestinal: normoactive bowel sounds, soft, non-tender abdomen, no palpable masses Musculoskeletal: other (R axilla with two tunneling wounds, the lower with some purulence) ICD10 Worksheet Patient Problems: Problems Problem Status Onset Lumbar stenosis Acute Lumbar radicular pain Acute Afib Acute
--- NOTE | 2017-05-14 11:48 | GCON ---
[f rep st] CONSULTATION INFECTIOUS DISEASE CONSULTATION. REFERRING PHYSICIAN: Leon Merlos MD REASON FOR REFERRAL: Fluid from right humeral operative site positive culture. HISTORY OF PRESENT ILLNESS: The patient is a 76-year-old male, who was admitted to [facility] on 05/08/2017. The patient had been seen up in [place] secondary to a fall and a fractu re of the right humerus. The patient was being managed conservatively at [place] with splints an d slings, but continued to have falls and re-injury of the fracture area. [facility] secondary to severe spinal stenosis . He had been previously fixated with a plate on his humerus in [place]. During the surgery, so me massiel were removed from the humeral incision, and clear fluid was noted. This was cultured and has returned with coagulase-negative staphylococci. We are consulted for opinions as to the signif icance of this finding. The patient is resting comfortably in his hospital bed. His is in the room. He denies any new complaint. PAST MEDICAL HISTORY: 1. Hypertension. 2. Atrial fibrillation. 3. Gastroesophageal reflux disease. 4. Obstructive sleep apnea. 5. History of prostate cancer. 6. Bipolar disease. 7. Spinal stenosis. PAST SURGICAL HISTORY: 1. Status post right humeral fracture repair. 2. Status post left total knee replacement. 3. Status post right open reduction, internal fixation. 4. Status post left shoulder surgery. 5. Status post implant of a vagal nerve stimulator. 6. Status post prostate surgery. ANTIBIOTICS: Minocycline. ALLERGIES: Patient is allergic to penicillin, fluoxetine, and shellfish. SOCIAL HISTORY: The patient denies any tobacco use. Only occasional alcohol use. No drug use. He lives with his in [place]. FAMILY HISTORY: Reviewed but noncontributory. REVIEW OF SYSTEMS: Other than that detailed above in History of Present Illness, comprehensive 10-s ystem review is negative. PHYSICAL EXAMINATION: VITAL SIGNS: Temperature maximum is 36.7, temperature current is 36.7, heart rate is 115, respiratory rate is 17, blood pressure is 142/103. GENERAL: The patient is a well-fo rmed, well-nourished elderly male in no acute distress. He is not toxic in appearance. He is alert and oriented x3. He has a flat affect and is not overly verbal; however, he is in a pleasant demea nor. HEENT: Normocephalic for age. Atraumatic. No scleral icterus. No oral lesion. No drainage from the nares. Eyes: Lids and conjunctivae are within normal limits. Pupils are not equal but a re reactive. NECK: Supple. No meningismus. LUNGS: Clear to auscultation bilaterally with good e ffort. HEART: Regular rate and rhythm. No murmur, rub, or gallop noted. SKIN: Warm and dry to t he touch. No rash noted. Patient has incisions around the right shoulder and right humeral area wi th no evidence of inflammation or drainage. No erythema. The patient also has some superficial wou nds in the right axilla, 1 anterior and 1 posterior. Anterior wound is subcentimeter in diameter. No significant drainage. Granulated base. Posterior wound is about 3 cm in diameter, also with gra nulation tissue as its base. No significant discharge. MUSCULOSKELETAL: No muscle belly tendernes s is noted. No joint line effusion or arthritis is seen. NEURO: Cranial nerves 2-12 seem to be in tact. Peripheral sensation seems intact in extremities. LABORATORY DATA: Patient has a CBC dated 05/14/2017, shows a white blood cell count of 9.5, hemoglo bin 11.1, hematocrit of 32.9, and a platelet count of 390. Differential slightly left shifted with 79% segmented neutrophils. Serum chemistries on 05/14/2017, show sodium of 135, potassium 3.7, chlo ride of 98, bicarbonate of 24, BUN of 9, and creatinine of 0.8. MICROBIOLOGIC DATA: Patient has incisional culture from 05/10/2017, which is growing 1+ coagulase-n egative staphylococci. ASSESSMENT: 1. Antonietta-incisional fluid pocket discovered in surgery. Culture is positive for 1+ coagulase-negati ve staphylococci. Examination of the incisional area reveals no erythema or signs of infection. I would not regard that finding as significant at this point. Would continue to observe off antibioti cs. It is unclear to me why he is on minocycline. Unless this is a chronic medication for other is sues, this can be discontinued. 2. Right axillary wounds. These are superficial and granular in their base. Wound care consult is reasonable. No antibiotics necessary. PLAN: Discontinue antibiotics. Observe. /[id number]/MODL
[2017-05-14] MEDS: CHOLECALCIFEROL VIT D3 1,000 UNITS TAB PO SCH (13:33)
[2017-05-14] MEDS: ALLOPURINOL 300 MG TAB PO SCH (13:33)
[2017-05-14] MEDS: POTASSIUM CL 10 MEQ TAB PO SCH (13:33)
[2017-05-14] MEDS: SENNOSIDES/DOCUSATE SODIUM TAB PO SCH ×2 (13:33→21:17)
--- NOTE | 2017-05-14 15:17 | WOCRNPDOC ---
WO[facility] Advanced Assessment Note - Skin Integrity Problem, Advanced Assess Right Axilla Pressure Injury Dressing Type: Gauze Dressing Description: Clean/Dry, Intact Exudate Amount: Moderate Exudate Characteristic(s): Serosanguinous Integumentary Issue Intervention: Dressing Removed Antonietta Wound Swelling: Mild Wound Bed Constitution: Granulation Tissue (100%) Wound Edges: Epithelizing, Attached (50%), Not Attached (50%) Site Measurement - Head-to-Toe Length X Width X Depth (cm): Lateral: 1.6x2.3x0.6. Medial: 0.5x1x0.5 Pressure Injury Stage: Stage 3, Stage 4 (unknow original stage. May have been either stage 3 or stage 4. ) Pressure Injury Present on Admit: Yes Skin Integrity Problem Comment: Wound from cast being too long and applying pressure to the axilla when patient broke his arm several weeks ago. Per patient 's family member the patient had a wound vac on his wounds until last week. Wounds were of an unknown stage, but now present as full thickness wounds without exposure of underlying structures, though there is a very high chance that they were stage 4 pressure injuries that are healing. There are two open wounds at this time. Both are healing well and will be treated with collagen and an absorbant secondary dressing. Wound care will round again in one week. Melissa CURTIS in room for consultation/care. Discussed plan with patient's family and questions answered.
[2017-05-14] MEDS: WARFARIN SODIUM 5 MG TAB PO SCH (16:51)
[2017-05-14 18:45] LABS: COLOR YELLOW; LEUKOCYTE ESTERASE,URINE NEGATIVE (NEGATIVE); NITRITE,URINE NEGATIVE (NEGATIVE)
[2017-05-14] MEDS: LEVOMILNACIPRAN HCL 80 MG PO SCH (21:18)
[2017-05-14] MEDS: FENOFIBRATE 145 MG TAB PO SCH (21:18)
[2017-05-14] MEDS: traMADol 50 MG TAB PO PRN (21:23)
[2017-05-15 05:27] LABS: INR 1.39 (0.83-1.16)
--- NOTE | 2017-05-15 07:12 | SOAPPROG ---
SOAP Progress Note Assessment/Plan: Assessment: confused 76 yo male POD#5 s/p L4/5 laminectomy right arm incision with prior drainage Plan: PT/OT as tolerated DC planning ID managing right arm drainage Subjective: awake, confused, comfortable Objective: Vital Signs Temp Pulse Resp BP Pulse Ox 37.1 C 127 H 18 142/94 H 98 05/15/17 04:00 05/15/17 04:00 05/15/17 04:00 05/15/17 04:00 05/15/17 04:00 Microbiology 05/10/17 16:30 Gram Stain - Final Elbow - Eswab Laboratory Results 05/14/17 04:25 05/14/17 04:25 05/14/17 05/15/17 05/16/17 05:59 05:59 05:59 Intake Total 1750 175 Output Total 80 Balance 1750 95 PT 17.0 SEC (12.0-15.0) H 05/15/17 04:35 INR 1.39 (0.83-1.16) H 05/15/17 04:35 Neuro: Oriented x year occasionally follows commands moves legs spontaneously sens +Lt Dressing: CDI ICD10 Worksheet Patient Problems: Problems Problem Status Onset Afib Acute Lumbar radicular pain Acute Lumbar stenosis Acute
[2017-05-15] MEDS: PANTOPRAZOLE SODIUM 40 MG TAB PO SCH (09:21)
[2017-05-15] MEDS: ARIPiprazole 2 MG TAB PO SCH (09:21)
[2017-05-15] MEDS: BENAZEPRIL HCL 20 MG TAB PO SCH (09:21)
[2017-05-15] MEDS: CHOLECALCIFEROL VIT D3 1,000 UNITS TAB PO SCH (09:21)
[2017-05-15] MEDS: NEBIVOLOL HCL 5 MG TAB PO SCH (09:21)
[2017-05-15] MEDS: ALLOPURINOL 300 MG TAB PO SCH (09:22)
[2017-05-15] MEDS: LIOTHYRONINE SODIUM 25 MCG TAB PO SCH (09:22)
[2017-05-15] MEDS: SENNOSIDES/DOCUSATE SODIUM TAB PO SCH ×2 (09:22→20:51)
[2017-05-15] MEDS: lamoTRIgine 100 MG TAB PO SCH (09:22)
[2017-05-15] MEDS: POTASSIUM CL 10 MEQ TAB PO SCH (09:22)
[2017-05-15] MEDS: FAMOTIDINE 20 MG TAB PO SCH ×2 (09:23→20:51)
[2017-05-15] MEDS: buPROPion SR 150 MG TAB PO SCH (09:23)
[2017-05-15] MEDS: ENOXAPARIN 100 MG/ML SYR SC SCH ×2 (09:23→20:52)
[2017-05-15] MEDS: MINOCYCLINE HCL 50 MG CAP PO SCH (09:24)
[2017-05-15] MEDS ORDERED: DILTIAZEM 125 MG in D5W 125 ML IV SCH (14:30)
--- NOTE | 2017-05-15 14:44 | HOSPPROG ---
Hospitalist Progress Note Assessment/Plan: 76M admitted for lumbar lami. Transferred from [place] (hospitalized 04/26-). Admitted there for humerus fx. C/b non-union d/t recurrent falls s/p ORIF. Axillary infection requiring wound vac and short course of Vanc. Also, outpatient psychiatrist has recommended stopping lamictal - had been tapered off in [facility]. severe spinal stenosis s/p laminectomy by Dr Brown, POD#5 - will schedule apap, try to minimize narcotics a-fib, persistent - ok'd for AC on 05/12 by neurosurgery - cont lovenox bridge to coumadin, follow INR - rates > goal start po dilt recent humeral fracture, non-union s/p ORIF - I have placed a call to Dr Tamayo's office to clarify they type of brace/ sling he requires axillary infection - ID will assess ID wants to observe elbow swab +[employer] - ID to consult, likely contaminant - wound care c/s minocycline therapy: suppressive for remote staph continue suspected acute on chronic encephalopathy - 08/16 on MMSE - minimize sedating meds add hs risperidal bipolar - cont abilify, wellbutrin, tape lamictal 200->100mg daily # debilitation - working with PT/OT - needs placement (SNF vs inpatient rehab) # hypothyroid # dispo - pending Subjective: tele: rapid AF (interp by me). agitated Objective: Vital Signs Temp Pulse Resp BP Pulse Ox 37.3 C 133 H 16 179/95 H 93 05/15/17 11:09 05/15/17 11:09 05/15/17 11:09 05/15/17 11:09 05/15/17 11:09 Microbiology 05/10/17 16:30 Gram Stain - Final Elbow - Eswab Laboratory Results 05/14/17 04:25 05/14/17 04:25 05/14/17 05/15/17 05/16/17 05:59 05:59 05:59 Intake Total 1750 175 Output Total 80 Balance 1750 95 PT 17.0 SEC (12.0-15.0) H 05/15/17 04:35 INR 1.39 (0.83-1.16) H 05/15/17 04:35 - Physical Exam Constitutional: no apparent distress, appears nourished Eyes: PERRL, anicteric sclera Ears, Nose, Mouth, Throat: moist mucous membranes, hearing normal Cardiovascular: no murmur, rub, or gallop, irregularly irregular, tachycardia Respiratory: no respiratory distress, no rales or rhonchi Gastrointestinal: normoactive bowel sounds, soft, non-tender abdomen Genitourinary: no bladder fullness, No alan in urethra Skin: warm, normal color Musculoskeletal: full muscle strength Neurologic: AAOx3, sensation intact bilaterally ICD10 Worksheet Patient Problems: Problems Problem Status Onset Afib Acute Lumbar radicular pain Acute Lumbar stenosis Acute
[2017-05-15] MEDS: DILTIAZEM 30 MG TAB PO SCH ×2 (17:01→23:51)
[2017-05-15] MEDS: WARFARIN SODIUM 5 MG TAB PO SCH (17:02)
[2017-05-15] MEDS: ACETAMINOPHEN 500 MG TAB PO SCH ×2 (17:02→20:52)
[2017-05-15] MEDS: risperiDONE 0.5 MG TAB PO SCH (20:51)
[2017-05-15] MEDS: FENOFIBRATE 145 MG TAB PO SCH (20:51)
[2017-05-15] MEDS: LEVOMILNACIPRAN HCL 80 MG PO SCH (21:06)
[2017-05-15] MEDS: traMADol 50 MG TAB PO PRN (23:51)
[2017-05-16] MEDS: DILTIAZEM 30 MG TAB PO SCH ×3 (04:59→17:09)
[2017-05-16 08:38] LABS: INR 1.62 (0.83-1.16); PROTIME(PATIENT) 19.3 SEC (12.0-15.0)
--- NOTE | 2017-05-16 08:48 | SOAPPROG ---
SOAP Progress Note Assessment/Plan: Assessment: confused, but slightly better this AM for me. 76 yo male POD#6 s/p L4/5 laminectomy right arm incision with prior drainage, no drainage today Ongoing generalized weakness and confusion Per RN, patient required 3 person assist and had minimal trunk stability Plan: Discussed with Dr. Brown. Will obtain thoracic MRI to eval for stenosis that may be contributing to trunk weakness and ongoing LE weakness, though patient was very weakn preop with falls. PT/OT as tolerated 05/16/17 08:45 Subjective: Awake, alert, but still confused. He is more interactive than yesterday. Denies back or leg pain. Objective: Vital Signs Temp Pulse Resp BP Pulse Ox 36.8 C 129 H 18 121/75 H 94 05/16/17 07:50 05/16/17 07:50 05/16/17 07:50 05/16/17 07:50 05/16/17 07:50 Microbiology 05/10/17 16:30 Gram Stain - Final Elbow - Eswab Laboratory Results 05/14/17 04:25 05/14/17 04:25 05/15/17 05/16/17 05/17/17 05:59 05:59 05:59 Intake Total 175 Output Total 80 Balance 95 PT 19.3 SEC (12.0-15.0) H 05/16/17 08:10 INR 1.62 (0.83-1.16) H 05/16/17 08:10 Neuro: Not oriented follows commands generalized weakness of bilateral LE, sensation +LT throughout equal, symmetric strength of upper extremites. lumbar incision: steri strips have dried blood. keep open to air. ICD10 Worksheet Patient Problems: Problems Problem Status Onset Afib Acute Lumbar radicular pain Acute Lumbar stenosis Acute
[2017-05-16] MEDS: BENAZEPRIL HCL 20 MG TAB PO SCH (10:35)
[2017-05-16] MEDS: LIOTHYRONINE SODIUM 25 MCG TAB PO SCH (10:35)
[2017-05-16] MEDS: ALLOPURINOL 300 MG TAB PO SCH (10:36)
[2017-05-16] MEDS: ARIPiprazole 2 MG TAB PO SCH (10:36)
[2017-05-16] MEDS: NEBIVOLOL HCL 5 MG TAB PO SCH (10:36)
[2017-05-16] MEDS: ACETAMINOPHEN 500 MG TAB PO SCH ×3 (10:36→22:19)
[2017-05-16] MEDS: SENNOSIDES/DOCUSATE SODIUM TAB PO SCH ×2 (10:38→22:20)
[2017-05-16] MEDS: FAMOTIDINE 20 MG TAB PO SCH ×2 (10:38→22:20)
[2017-05-16] MEDS: CHOLECALCIFEROL VIT D3 1,000 UNITS TAB PO SCH (10:38)
[2017-05-16] MEDS: ENOXAPARIN 100 MG/ML SYR SC SCH ×2 (10:39→22:20)
[2017-05-16] MEDS: LANSOPRAZOLE SUSP 30MG/10ML UDSYR (Adult) PO SCH (10:39)
[2017-05-16] MEDS: MINOCYCLINE HCL 50 MG CAP PO SCH (10:52)
[2017-05-16] MEDS: POTASSIUM CL 20 MEQ/15 ML UDCUP PO SCH (11:06)
[2017-05-16] MEDS: buPROPion 100 MG TAB PO SCH ×3 (11:07→22:20)
[2017-05-16] MEDS: POTASSIUM CL 10 MEQ TAB PO SCH (11:33)
[2017-05-16] MEDS: PANTOPRAZOLE SODIUM 40 MG TAB PO SCH (11:33)
[2017-05-16] MEDS: buPROPion SR 150 MG TAB PO SCH (11:33)
--- NOTE | 2017-05-16 13:23 | HOSPPROG ---
Hospitalist Progress Note Assessment/Plan: 76M admitted for lumbar lami. Transferred from [place] (hospitalized 04/26-). Admitted there for humerus fx. C/b non-union d/t recurrent falls s/p ORIF. Axillary infection requiring wound vac and short course of Vanc. Also, outpatient psychiatrist has recommended stopping lamictal - had been tapered off in [facility]. encephalopathy: perhaps slightly better otday dc iv narcotics and muscle relaxants continue hs risperdal he has responded well to this in the past when he has had delirium follow severe spinal stenosis s/p laminectomy by Dr Brown, POD#6 - will schedule apap, try to minimize narcotics dc iv morphine and muscle relaxants a-fib, persistent - ok'd for AC on 05/12 by neurosurgery - cont lovenox bridge to coumadin, follow INR - rates > goal start po dilt remains rapid trial of IVF not tolerating telemetry recent humeral fracture, non-union s/p ORIF - I have placed a call to Dr Tamayo's office to clarify they type of brace/ sling he requires axillary infection - ID will assess ID wants to observe 05/16- no purulence elbow swab +[employer] - ID to consult, likely contaminant - wound care c/s minocycline therapy: suppressive for remote staph continue suspected acute on chronic encephalopathy - 08/16 on MMSE - minimize sedating meds add hs risperidal bipolar - cont abilify, wellbutrin, tape lamictal 200->100mg daily # debilitation - working with PT/OT - needs placement (SNF vs inpatient rehab) # hypothyroid # dispo - pending Subjective: more alert but remains encephalopathic. tachycardia remains Objective: Vital Signs Temp Pulse Resp BP Pulse Ox 37.1 C 118 H 16 111/69 96 05/16/17 12:00 05/16/17 12:00 05/16/17 12:00 05/16/17 12:00 05/16/17 12:00 Microbiology 05/10/17 16:30 Gram Stain - Final Elbow - Eswab Laboratory Results 05/14/17 04:25 05/14/17 04:25 05/15/17 05/16/17 05/17/17 05:59 05:59 05:59 Intake Total 175 Output Total 80 Balance 95 PT 19.3 SEC (12.0-15.0) H 05/16/17 08:10 INR 1.62 (0.83-1.16) H 05/16/17 08:10 - Physical Exam Constitutional: no apparent distress, appears nourished Eyes: PERRL, anicteric sclera Ears, Nose, Mouth, Throat: moist mucous membranes, hearing normal Cardiovascular: irregularly irregular, tachycardia Respiratory: no respiratory distress, no rales or rhonchi Gastrointestinal: normoactive bowel sounds, soft, non-tender abdomen Genitourinary: No alan in urethra Skin: warm, other (R axillary wounds OK. posterior has small amount of purulence but no fluctuance, cellulitis or smell) Musculoskeletal: other (able to move LE but weak. unclear how well he is following commands) Neurologic: AAOx3 ICD10 Worksheet Patient Problems: Problems Problem Status Onset Afib Acute Lumbar radicular pain Acute Lumbar stenosis Acute
[2017-05-16] MEDS: lamoTRIgine 100 MG TAB PO SCH (13:28)
[2017-05-16] MEDS ORDERED: NS 1,000 ML IV SCH (13:30)
[2017-05-16 14:00] LABS: % IMMATURE GRANULYOCYTES 0.6 % (0.0-1.1); ABSOLUTE IMMATURE GRANULOCYTES 0.06 10^3/uL (0.00-0.10); ADD DIFF? NO; ADD MORPH? NO; ADD SCAN? NO; ATYPICAL LYMPHOCYTE FLAG 0 (0-99); FRAGMENT RBC FLAG 0 (0-99); HEMATOCRIT 31.6 % (40.0-51.0); HEMOGLOBIN 10.6 g/dL (13.7-17.5); LEFT SHIFT FLG 0 (0-99); LIPEMIA HEMOLYSIS FLAG 80 (0-99); MEAN CELL HEMOGLOBIN 30.8 pg (27.9-34.1); MEAN CELL HEMOGLOBIN CONCENTR. 33.5 g/dL (32.4-36.7); MEAN CELL VOLUME 91.9 fL (81.5-99.8); MEAN PLATELET VOLUME 10.3 fL (8.7-11.7); PLATELET CLUMPS FLAG 0 (0-99); PLATELET COUNT 454 10^3/uL (150-400); RED BLOOD CELL COUNT 3.44 10^6/uL (4.40-6.38); RED CELL DISTRIBUTION WIDTH 13.8 % (11.5-15.2)
[2017-05-16 14:18] LABS: ANION GAP 14 mEq/L (8-16); CALCIUM 9.8 mg/dL (8.5-10.4); CARBON DIOXIDE 23 mEq/l (22-31); CHLORIDE 100 mEq/L (97-110); CREATININE 0.9 mg/dL (0.7-1.3); GLOMERULAR FILTRATION RATE > 60; GLUCOSE 132 mg/dL (70-100); POTASSIUM 3.4 mEq/L (3.5-5.2); SODIUM 137 mEq/L (134-144)
[2017-05-16] MEDS: WARFARIN SODIUM 5 MG TAB PO SCH (17:09)
[2017-05-16] MEDS: FENOFIBRATE 145 MG TAB PO SCH (22:20)
[2017-05-16] MEDS: risperiDONE 0.5 MG TAB PO SCH (22:20)
[2017-05-16] MEDS: LEVOMILNACIPRAN HCL 80 MG PO SCH (22:21)
[2017-05-17] MEDS: DILTIAZEM 30 MG TAB PO SCH ×4 (01:14→20:35)
[2017-05-17] MEDS: traMADol 50 MG TAB PO PRN (04:00)
[2017-05-17 05:18] LABS: % IMMATURE GRANULYOCYTES 0.6 % (0.0-1.1); ABSOLUTE IMMATURE GRANULOCYTES 0.05 10^3/uL (0.00-0.10); ADD DIFF? NO; ADD MORPH? NO; ADD SCAN? NO; ATYPICAL LYMPHOCYTE FLAG 0 (0-99); FRAGMENT RBC FLAG 0 (0-99); HEMATOCRIT 31.3 % (40.0-51.0); HEMOGLOBIN 10.5 g/dL (13.7-17.5); LEFT SHIFT FLG 0 (0-99); LIPEMIA HEMOLYSIS FLAG 80 (0-99); MEAN CELL HEMOGLOBIN CONCENTR. 33.5 g/dL (32.4-36.7); MEAN CELL VOLUME 92.3 fL (81.5-99.8); MEAN PLATELET VOLUME 10.7 fL (8.7-11.7); PLATELET CLUMPS FLAG 10 (0-99); PLATELET COUNT 419 10^3/uL (150-400); RED BLOOD CELL COUNT 3.39 10^6/uL (4.40-6.38)
[2017-05-17 05:23] LABS: INR 2.04 (0.83-1.16); PROTIME(PATIENT) 23.2 SEC (12.0-15.0)
[2017-05-17 05:32] LABS: ANION GAP 13 mEq/L (8-16); CALCIUM 9.7 mg/dL (8.5-10.4); CARBON DIOXIDE 24 mEq/l (22-31); CHLORIDE 102 mEq/L (97-110); CREATININE 0.9 mg/dL (0.7-1.3); GLOMERULAR FILTRATION RATE > 60; GLUCOSE 114 mg/dL (70-100); POTASSIUM 3.5 mEq/L (3.5-5.2); SODIUM 139 mEq/L (134-144)
--- NOTE | 2017-05-17 07:30 | NEUSURGPN ---
Assessment/Plan: Assessment: 76 yo male POD#7 s/p L4/5 laminectomy right arm incision with prior drainage, no drainage today Ongoing generalized weakness and confusion - waxes and wanes Per RN, patient required 3 person assist and had minimal trunk stability Plan: Discussed with Dr. Brown. Unable to obtain thoracic MRI due to nerve stimulator PT/OT as tolerated ID has seen, not recommending abx at this time Call NS with any new issues or questions Dispo: Likely will need SNF/rehab Subjective: Pt resting in bed, denies pain. Objective: Sleeping but awakens easily MAEx4 Follows most commands Motor 5/5 BUE/BLE +LT Urinary Catheter in Place: No - Physician Discussed Patient with : Kevin Neurosurgery Physical Exam - Vitals, I&O, Labs I and O 05/16/17 05/17/17 05/18/17 05:59 05:59 05:59 Intake Total 1350 Balance 1350 Intake: Oral (ml) 900 IV Infused (ml) 450 Ns 1,000 ml @ 125 mls/hr 450 IV CONT ELLIE Rx#: [id number] Other: Intake Quantity Yes Sufficient Number of Voids Incontinence 2 3 Number of Stools Incontinence 0 Vital Signs Temp Pulse Resp BP Pulse Ox 37 C 104 H 17 111/75 92 05/17/17 04:00 05/17/17 04:00 05/17/17 04:00 05/17/17 04:00 05/17/17 04:00 Laboratory Results 05/17/17 03:59 05/17/17 03:59 ICD10 Worksheet Patient Problems: Problems Problem Status Onset Afib Acute Lumbar radicular pain Acute Lumbar stenosis Acute
[2017-05-17] MEDS: ACETAMINOPHEN 500 MG TAB PO SCH ×4 (09:46→22:39)
[2017-05-17] MEDS: NEBIVOLOL HCL 5 MG TAB PO SCH ×2 (09:47→11:34)
[2017-05-17] MEDS: BENAZEPRIL HCL 20 MG TAB PO SCH ×3 (09:49→14:08)
[2017-05-17] MEDS: CHOLECALCIFEROL VIT D3 1,000 UNITS TAB PO SCH ×3 (09:49→14:03)
[2017-05-17] MEDS: ARIPiprazole 2 MG TAB PO SCH ×3 (09:50→14:26)
[2017-05-17] MEDS: LIOTHYRONINE SODIUM 25 MCG TAB PO SCH ×3 (09:50→14:07)
[2017-05-17] MEDS: ALLOPURINOL 300 MG TAB PO SCH ×3 (09:51→14:04)
[2017-05-17] MEDS: POTASSIUM CL 20 MEQ/15 ML UDCUP PO SCH ×3 (09:52→13:59)
[2017-05-17] MEDS: ENOXAPARIN 100 MG/ML SYR SC SCH (09:53)
[2017-05-17] MEDS: SENNOSIDES/DOCUSATE SODIUM TAB PO SCH ×4 (09:54→20:35)
[2017-05-17] MEDS: FAMOTIDINE 20 MG TAB PO SCH ×4 (09:54→20:36)
[2017-05-17] MEDS: buPROPion 100 MG TAB PO SCH ×5 (09:54→22:39)
[2017-05-17] MEDS: LANSOPRAZOLE SUSP 30MG/10ML UDSYR (Adult) PO SCH (11:34)
--- NOTE | 2017-05-17 15:06 | HOSPPROG ---
Hospitalist Progress Note Assessment/Plan: 76M admitted for lumbar lami. Transferred from [facility] (hospitalized 04/26-). Admitted there for humerus fx. C/b non-union d/t recurrent falls s/p ORIF. Axillary infection requiring wound vac and short course of Vanc. Also, outpatient psychiatrist has recommended stopping lamictal - had been tapered off in [facility]. encephalopathy: steady improvement in last few days dc iv narcotics and muscle relaxants continue hs risperdal he has responded well to this in the past when he has had delirium per , he is improving daily, and this is c/w my eval. juanito olivas current management severe spinal stenosis s/p laminectomy by Dr Brown, POD#7 - will schedule apap, try to minimize narcotics dc iv morphine and muscle relaxants there is concern over LE weakness he does have muscle atrophy continue PT as tolerated a-fib, persistent - ok'd for AC on 05/12 by neurosurgery - inr therapeutic - rates > goal dilt added 05/15 bun up and poor po intake from encephalopathy give 2L IVF today (05/17) if not better 05/18, consider higher dose dilt or dig PE considered, has been anticoagulated recent humeral fracture, non-union s/p ORIF - axillary infection - ID will assess ID wants to observe 05/16- no purulence 05/17- looks better. appreciate local wound care elbow swab +[employer] - ID to consult, likely contaminant - wound care c/s minocycline therapy: suppressive for remote staph continue suspected acute on chronic encephalopathy - 08/16 on MMSE - minimize sedating meds add hs risperidal bipolar - cont abilify, wellbutrin, tape lamictal 200->100mg daily lamictal dc'd debilitation - working with PT/OT - needs placement (SNF vs inpatient rehab) hypothyroid # dispo - pending Subjective: more alert today. thinks he is better. refusing pills this AM , took w this pm Objective: Vital Signs Temp Pulse Resp BP Pulse Ox 36.7 C 128 H 16 124/85 H 96 05/17/17 08:15 05/17/17 11:19 05/17/17 08:15 05/17/17 11:19 05/17/17 11:19 Microbiology 05/10/17 16:30 Gram Stain - Final Elbow - Eswab Laboratory Results 05/17/17 03:59 05/17/17 03:59 05/16/17 05/17/17 05/18/17 05:59 05:59 05:59 Intake Total 1350 350 Balance 1350 350 PT 23.2 SEC (12.0-15.0) H 05/17/17 03:59 INR 2.04 (0.83-1.16) H 05/17/17 03:59 - Physical Exam Constitutional: no apparent distress, appears nourished Eyes: PERRL, anicteric sclera Ears, Nose, Mouth, Throat: moist mucous membranes, hearing normal Cardiovascular: irregularly irregular, tachycardia Respiratory: no respiratory distress, no rales or rhonchi Gastrointestinal: normoactive bowel sounds, soft, non-tender abdomen Genitourinary: no bladder fullness, No alan in urethra Skin: warm, normal color Musculoskeletal: no muscle tenderness, No full muscle strength Neurologic: sensation intact bilaterally, No AAOx3 ICD10 Worksheet Patient Problems: Problems Problem Status Onset Afib Acute Lumbar radicular pain Acute Lumbar stenosis Acute
[2017-05-17] MEDS: WARFARIN SODIUM 5 MG TAB PO SCH (15:53)
[2017-05-17] MEDS: NS 1,000 ML IV SCH (15:53)
[2017-05-17] MEDS: risperiDONE 0.5 MG TAB PO SCH (20:35)
[2017-05-17] MEDS: FENOFIBRATE 145 MG TAB PO SCH (20:36)
[2017-05-17] MEDS: LEVOMILNACIPRAN HCL 80 MG PO SCH (20:41)
[2017-05-18] MEDS: NS 1,000 ML IV SCH (01:26)
[2017-05-18] MEDS: DILTIAZEM 30 MG TAB PO SCH ×5 (01:27→23:26)
[2017-05-18 04:56] LABS: % IMMATURE GRANULYOCYTES 0.7 % (0.0-1.1); ABSOLUTE IMMATURE GRANULOCYTES 0.05 10^3/uL (0.00-0.10); ADD DIFF? NO; ADD MORPH? NO; ADD SCAN? NO; ATYPICAL LYMPHOCYTE FLAG 0 (0-99); FRAGMENT RBC FLAG 0 (0-99); HEMATOCRIT 30.3 % (40.0-51.0); LEFT SHIFT FLG 0 (0-99); LIPEMIA HEMOLYSIS FLAG 80 (0-99); MEAN CELL HEMOGLOBIN 30.9 pg (27.9-34.1); MEAN CELL VOLUME 93.5 fL (81.5-99.8); MEAN PLATELET VOLUME 10.5 fL (8.7-11.7); PLATELET CLUMPS FLAG 0 (0-99); PLATELET COUNT 342 10^3/uL (150-400); RED BLOOD CELL COUNT 3.24 10^6/uL (4.40-6.38)
[2017-05-18 05:08] LABS: ANION GAP 11 mEq/L (8-16); CALCIUM 9.2 mg/dL (8.5-10.4); CARBON DIOXIDE 23 mEq/l (22-31); CHLORIDE 103 mEq/L (97-110); CREATININE 0.9 mg/dL (0.7-1.3); GLOMERULAR FILTRATION RATE > 60; GLUCOSE 91 mg/dL (70-100); POTASSIUM 3.2 mEq/L (3.5-5.2); SODIUM 137 mEq/L (134-144)
[2017-05-18 05:09] LABS: INR 2.28 (0.83-1.16); PROTIME(PATIENT) 25.3 SEC (12.0-15.0)
--- NOTE | 2017-05-18 08:53 | NEUSURGPN ---
Date of Surgery: 05/10/17 Post Op Day: 8 Assessment/Plan: Assessment: 76 yo male POD#8 s/p L4/5 laminectomy right arm incision with prior drainage, no drainage today Ongoing generalized weakness and confusion - waxes and wanes Per RN, patient required 3 person assist and had minimal trunk stability Plan: Unable to obtain thoracic MRI due to nerve stimulator PT/OT as tolerated, encouraged increased activity ID has seen, not recommending abx at this time Call NS with any new issues or questions Dispo: Likely will need SNF/rehab once cleared by medicine Subjective: States lower extremity pain is improved compared to prior to surgery. Objective: Awake. Alert. PERRL Incision with dressing c/d/i Muscle strength- wiggling toes and moving ankles up and down but limited exam this morning LE Diffuse weakness at 4/5 - Physician Discussed Patient with : Kevin Neurosurgery Physical Exam - Vitals, I&O, Labs I and O 05/17/17 05/18/17 05/19/17 05:59 05:59 05:59 Intake Total 1350 650 Balance 1350 650 Intake: Oral (ml) 900 650 IV Infused (ml) 450 Ns 1,000 ml @ 125 mls/hr 450 IV CONT ELLIE Rx#: [id number] Other: Intake Quantity Yes Yes Sufficient Number of Voids Incontinence 3 1 Number of Stools Incontinence 0 Microbiology 05/10/17 16:30 Gram Stain - Final Elbow - Eswab Vital Signs Temp Pulse Resp BP Pulse Ox 36.6 C 123 H 20 115/81 H 95 05/18/17 07:30 05/18/17 07:30 05/18/17 07:30 05/18/17 07:30 05/18/17 07:30 Laboratory Results 05/18/17 04:08 05/18/17 04:08 ICD10 Worksheet Patient Problems: Problems Problem Status Onset Afib Acute Lumbar radicular pain Acute Lumbar stenosis Acute
[2017-05-18] MEDS: NEBIVOLOL HCL 5 MG TAB PO SCH (09:59)
[2017-05-18] MEDS: BENAZEPRIL HCL 20 MG TAB PO SCH (09:59)
[2017-05-18] MEDS: LIOTHYRONINE SODIUM 25 MCG TAB PO SCH (09:59)
[2017-05-18] MEDS: SENNOSIDES/DOCUSATE SODIUM TAB PO SCH ×2 (10:00→23:32)
[2017-05-18] MEDS: ACETAMINOPHEN 500 MG TAB PO SCH ×3 (10:01→23:26)
[2017-05-18] MEDS: CHOLECALCIFEROL VIT D3 1,000 UNITS TAB PO SCH (10:02)
[2017-05-18] MEDS: buPROPion 100 MG TAB PO SCH ×3 (10:03→23:26)
[2017-05-18] MEDS: PANTOPRAZOLE SODIUM 40 MG TAB PO SCH (10:04)
[2017-05-18] MEDS: FAMOTIDINE 20 MG TAB PO SCH ×2 (10:04→23:26)
[2017-05-18] MEDS: ARIPiprazole 2 MG TAB PO SCH (10:04)
[2017-05-18] MEDS: POTASSIUM CL 10 MEQ TAB PO SCH (10:05)
--- NOTE | 2017-05-18 15:14 | HOSPPROG ---
Hospitalist Progress Note Assessment/Plan: 76M admitted for lumbar lami. Transferred from [place] (hospitalized 04/26-). Admitted there for humerus fx. C/b non-union d/t recurrent falls s/p ORIF. Axillary infection requiring wound vac and short course of Vanc. Also, outpatient psychiatrist has recommended stopping lamictal - had been tapered off in [facility]. # Acute encephalopathy- suspect inpatient delirium complicated by acute illness and pain medication- reports mild cognitive deficits baseline CT head(personally reviewed and interpreted) no acute findings- age related volume loss-- 08/16 on MMSE - dc iv narcotics and muscle relaxants - continue hs Risperdal (effective historically for him) - continue appropriate re-orientation and supportive care # severe spinal stenosis s/p laminectomy by Dr Brown, POD#7 - will schedule APAP (try to minimize narcotics) - cont PT/OT # Atrial Fibrillation, persistent - cleared for anticoagulation on 05/12 by neurosurgery EKG (personally reviewed and interpreted) afib 130's Oxygen saturations 95% on room air - cont lovenox bridge to coumadin, follow INR 2.2 this am - increase PO dilt to 60 # Subacute humeral fracture, non-union s/p ORIF - cont brace/sling # axillary infection - ID ID wants to observe- no purulence # elbow swab + [employer] - ID to consult, likely contaminant - wound care c/s # minocycline therapy: suppressive for remote staph continue # bipolar - cont abilify, wellbutrin, tape lamictal 200-> off # debilitation - working with PT/OT - needs placement (SNF vs inpatient rehab) # hypothyroid # dispo - > 2MN as requiring medication titration and acute care support I have discussed the case with the RN- will work to get the patient up to chair for meals today if truncal strength allows Subjective: Denies chest pain or palpitations Objective: Vital Signs Temp Pulse Resp BP Pulse Ox 36.7 C 135 H 22 H 117/76 95 05/18/17 11:10 05/18/17 11:10 05/18/17 11:10 05/18/17 11:10 05/18/17 11:10 Microbiology 05/10/17 16:30 Gram Stain - Final Elbow - Eswab Laboratory Results 05/18/17 04:08 05/18/17 04:08 05/17/17 05/18/17 05/19/17 05:59 05:59 05:59 Intake Total 1350 650 Balance 1350 650 PT 25.3 SEC (12.0-15.0) H 05/18/17 04:08 INR 2.28 (0.83-1.16) H 05/18/17 04:08 - Physical Exam Constitutional: chronically ill appearing Eyes: anicteric sclera Ears, Nose, Mouth, Throat: dry mucous membranes Cardiovascular: irregularly irregular, tachycardia Respiratory: no respiratory distress, no rales or rhonchi Gastrointestinal: normoactive bowel sounds Genitourinary: no bladder fullness Skin: warm, normal color Musculoskeletal: No asymmetric calves Neurologic: No AAOx3 Psychiatric: encephalopathic Lymph, Heme, Immunologic: no cervical LAD ICD10 Worksheet Patient Problems: Problems Problem Status Onset Afib Acute Lumbar radicular pain Acute Lumbar stenosis Acute
--- NOTE | 2017-05-18 16:26 | ASMTCMCOM ---
CM Note CM Note Notes: [facility] called requesting updated therapy/MD notes. CM faxed over updates. CM completed PASRR and sent it to Мария Murillo, should SNF be necessary. Per RN, pt showed some improvement today. Await determination from [facility]. CM to follow. Date Signed: 05/18/2017 04:26 PM Electronically Signed By:Dai Jordan
[2017-05-18] MEDS: WARFARIN SODIUM 5 MG TAB PO SCH (18:06)
[2017-05-18] MEDS: ONDANSETRON DISINTEGRATING 4 MG TAB PO PRN (19:55)
[2017-05-18] MEDS: FENOFIBRATE 145 MG TAB PO SCH (23:25)
[2017-05-18] MEDS: risperiDONE 0.5 MG TAB PO SCH (23:27)
[2017-05-18] MEDS: LEVOMILNACIPRAN HCL 80 MG PO SCH (23:28)
[2017-05-19 05:29] LABS: HEMATOCRIT 32.1 % (40.0-51.0); MEAN CELL HEMOGLOBIN 31.3 pg (27.9-34.1); MEAN CELL HEMOGLOBIN CONCENTR. 34.3 g/dL (32.4-36.7); MEAN CELL VOLUME 91.2 fL (81.5-99.8); RED BLOOD CELL COUNT 3.52 10^6/uL (4.40-6.38); RED CELL DISTRIBUTION WIDTH 14.2 % (11.5-15.2)
[2017-05-19 05:41] LABS: INR 2.49 (0.83-1.16); PROTIME(PATIENT) 27.2 SEC (12.0-15.0)
[2017-05-19 05:48] LABS: ANION GAP 16 mEq/L (8-16); CALCIUM 9.2 mg/dL (8.5-10.4); CARBON DIOXIDE 22 mEq/l (22-31); CHLORIDE 104 mEq/L (97-110); CREATININE 0.6 mg/dL (0.7-1.3); GLOMERULAR FILTRATION RATE > 60; GLUCOSE 136 mg/dL (70-100); POTASSIUM 3.4 mEq/L (3.5-5.2); SODIUM 142 mEq/L (134-144)
[2017-05-19] MEDS: DILTIAZEM 30 MG TAB PO SCH ×3 (06:16→16:10)
[2017-05-19] MEDS: SENNOSIDES/DOCUSATE SODIUM TAB PO SCH ×2 (09:26→20:34)
[2017-05-19] MEDS: LIOTHYRONINE SODIUM 25 MCG TAB PO SCH (09:26)
[2017-05-19] MEDS: FAMOTIDINE 20 MG TAB PO SCH (09:26)
[2017-05-19] MEDS: buPROPion 100 MG TAB PO SCH ×3 (09:26→22:05)
[2017-05-19] MEDS: ACETAMINOPHEN 500 MG TAB PO SCH ×3 (09:27→20:35)
[2017-05-19] MEDS: BENAZEPRIL HCL 20 MG TAB PO SCH (09:27)
[2017-05-19] MEDS: POTASSIUM CL 10 MEQ TAB PO SCH (09:27)
[2017-05-19] MEDS: CHOLECALCIFEROL VIT D3 1,000 UNITS TAB PO SCH (09:27)
[2017-05-19] MEDS: PANTOPRAZOLE SODIUM 40 MG TAB PO SCH (09:27)
[2017-05-19] MEDS: ALLOPURINOL 300 MG TAB PO SCH (09:27)
--- NOTE | 2017-05-19 12:08 | SOAPPROG ---
LENORA Progress Note Assessment/Plan: Assessment: Mr. Bowie was struggling both before and now after his lumbar laminectomy both with features of delirium as well as poor activity and failure to thrive. We had hoped a lumbar laminectomy would improve his mobility and he has been able to stand and walk a couple of steps after the surgery which was an improvement. He continues to languish somewhat and is not safe to go home. It is my feeling that his overall condition will improve in time. I favor continued hospitalization here through the weekend so we can continue to observe his progress. We appreciate the help of the medicine service. Plan: 05/19/17 12:06 05/19/17 12:10 Subjective: No acute events. Mental status waxes and wanes per . He is not unhappy and has no complaints right now. Objective: Vital Signs Temp Pulse Resp BP Pulse Ox 36.3 C 115 H 20 117/71 97 05/19/17 07:40 05/19/17 07:40 05/19/17 07:40 05/19/17 07:40 05/19/17 07:40 Microbiology 05/10/17 16:30 Gram Stain - Final Elbow - Eswab Laboratory Results 05/19/17 04:33 05/19/17 04:33 05/18/17 05/19/17 05/20/17 05:59 05:59 05:59 Intake Total 650 800 Balance 650 800 PT 27.2 SEC (12.0-15.0) H 05/19/17 04:33 INR 2.49 (0.83-1.16) H 05/19/17 04:33 His feet move with good strength. He does not like to move his proximal legs but also does not follow commands well. His speech is confused but he is fully alert. Incision is CDI ICD10 Worksheet Patient Problems: Problems Problem Status Onset Afib Acute Lumbar radicular pain Acute Lumbar stenosis Acute
--- NOTE | 2017-05-19 13:30 | HOSPPROG ---
Hospitalist Progress Note Assessment/Plan: DIAGNOSES: -acute encephalopathy, multifactorial -status post surgery for spinal stenosis, no surgical complications directly -recent nonunion and arm fracture with open reduction internal fixation elsewhere, some evidence wound issues but no direct current evidence of infection -atrial fibrillation, rate controlled, on chronic anticoagulation -history of obstructive sleep apnea -bipolar disorder stable on medication PLANS: Continue to avoid medications with central nervous system side effects Encourage normal oral intake as able Continue PT and OT and as able Try to keep him on abnormal sleep-wake cycle Follow wounds closely DVT prophylaxis SUBJECTIVE: The patient remains delirious and so formal assessment of his symptoms is fairly compromised He does not report much in the way of pain or discomfort, no shortness of breath OBJECTIVE Vitals reviewed: Stable in sinus rhythm with no fever Exam: Sleeping but easily aroused; knows his name, his , and he is in the hospital but is fairly disoriented overall; nothing focal skin warm dry color ok resps not labored lungs clear BSs heart regular abd soft nondistended nontender, bowel sounds present limbs warm, no edema iv site ok Objective: Vital Signs Temp Pulse Resp BP Pulse Ox 36.3 C 115 H 20 117/71 97 05/19/17 07:40 05/19/17 07:40 05/19/17 07:40 05/19/17 07:40 05/19/17 07:40 Microbiology 05/10/17 16:30 Gram Stain - Final Elbow - Eswab Laboratory Results 05/19/17 04:33 05/19/17 04:33 05/18/17 05/19/17 05/20/17 06:59 06:59 06:59 Intake Total 650 800 Balance 650 800 PT 27.2 SEC (12.0-15.0) H 05/19/17 04:33 INR 2.49 (0.83-1.16) H 05/19/17 04:33 ICD10 Worksheet Patient Problems: Problems Problem Status Onset Afib Acute Lumbar radicular pain Acute Lumbar stenosis Acute
[2017-05-19] MEDS: WARFARIN SODIUM 5 MG TAB PO SCH (16:10)
[2017-05-19] MEDS: FENOFIBRATE 145 MG TAB PO SCH (20:34)
[2017-05-19] MEDS: LEVOMILNACIPRAN HCL 80 MG PO SCH (20:44)
[2017-05-19] MEDS: risperiDONE 0.5 MG TAB PO SCH (20:52)
[2017-05-20] MEDS: DILTIAZEM 30 MG TAB PO SCH (01:00)
[2017-05-20] MEDS: DILTIAZEM 60 MG TAB PO SCH ×3 (05:55→18:06)
[2017-05-20] MEDS: ACETAMINOPHEN 500 MG TAB PO SCH ×3 (09:55→21:59)
[2017-05-20] MEDS: buPROPion 100 MG TAB PO SCH ×3 (09:56→21:59)
[2017-05-20] MEDS: BENAZEPRIL HCL 20 MG TAB PO SCH (09:57)
[2017-05-20] MEDS: LIOTHYRONINE SODIUM 25 MCG TAB PO SCH (09:57)
[2017-05-20] MEDS: POTASSIUM CL 10 MEQ TAB PO SCH (09:57)
[2017-05-20] MEDS: ALLOPURINOL 300 MG TAB PO SCH (09:58)
[2017-05-20] MEDS: SENNOSIDES/DOCUSATE SODIUM TAB PO SCH ×2 (09:58→21:59)
[2017-05-20] MEDS: CHOLECALCIFEROL VIT D3 1,000 UNITS TAB PO SCH (09:58)
[2017-05-20] MEDS: PANTOPRAZOLE SODIUM 40 MG TAB PO SCH (09:58)
[2017-05-20] MEDS: ARIPiprazole 2 MG TAB PO SCH (09:58)
--- NOTE | 2017-05-20 12:08 | SOAPPROG ---
LENORA Progress Note Assessment/Plan: Assessment: Mr. Bowie was struggling both before and now after his lumbar laminectomy both with features of delirium as well as poor activity and failure to thrive. We had hoped a lumbar laminectomy would improve his mobility and he has been able to stand and walk a couple of steps after the surgery which was an improvement. He continues to languish somewhat and is not safe to go home. It is my feeling that his overall condition will improve in time. I favor continued hospitalization here through the weekend so we can continue to observe his progress. We appreciate the help of the medicine service. continue PT and work at mobilizing him. Plan: 05/19/17 12:06 05/19/17 12:10 05/20/17 12:07 Subjective: had a better day yesterday with therapies getting him up and down repeatedly. his spirits are better Objective: Vital Signs Temp Pulse Resp BP Pulse Ox 36.9 C 122 H 16 118/79 95 05/20/17 07:31 05/20/17 07:31 05/20/17 07:31 05/20/17 07:31 05/20/17 07:31 Microbiology 05/10/17 16:30 Gram Stain - Final Elbow - Eswab Laboratory Results 05/19/17 04:33 05/19/17 04:33 05/19/17 05/20/17 05/21/17 05:59 05:59 05:59 Intake Total 800 1000 Balance 800 1000 PT 27.2 SEC (12.0-15.0) H 05/19/17 04:33 INR 2.49 (0.83-1.16) H 05/19/17 04:33 moves his feet fine to command ICD10 Worksheet Patient Problems: Problems Problem Status Onset Afib Acute Lumbar radicular pain Acute Lumbar stenosis Acute
--- NOTE | 2017-05-20 12:23 | ASMTCMCOM ---
CM Note CM Note Notes: Plan is to keep pt in hospital through weekend to monitor progress. Sent Gloria at [facility] last two days of MD notes. C/M will continue to follow., Date Signed: 05/20/2017 12:22 PM Electronically Signed By:Fatmata Merino
[2017-05-20] MEDS: WARFARIN SODIUM 5 MG TAB PO SCH (15:58)
--- NOTE | 2017-05-20 17:04 | HOSPPROG ---
Hospitalist Progress Note Assessment/Plan: DIAGNOSES: -acute encephalopathy, multifactorial ( he does have hx of previous episodes of this ) -status post surgery for spinal stenosis, no surgical complications directly -recent nonunion and arm fracture with open reduction internal fixation elsewhere, some evidence wound issues but no direct current evidence of infection -atrial fibrillation, rate controlled, on chronic anticoagulation -history of obstructive sleep apnea -bipolar disorder stable on medication PLANS: Continue to avoid medications with central nervous system side effects Encourage normal oral intake as able Continue PT and OT and as able Try to keep him on a normal sleep-wake cycle as able Follow wounds closely DVT prophylaxis SUBJECTIVE: The patient remains delirious and so formal assessment of his other symptoms is fairly compromised but he denies pain, says he feels "fine overall" OBJECTIVE Vitals reviewed: Stable in sinus rhythm with no fever Exam: wide awake today, very interactive and conversational, relaxed, smiling; remains quite disoriented but responds normally to questions/commands otherwise skin warm dry color ok resps not labored lungs clear BSs heart regular abd soft nondistended nontender, bowel sounds present limbs warm, no edema iv site ok Objective: Vital Signs Temp Pulse Resp BP Pulse Ox 36.6 C 129 H 16 124/84 H 97 05/20/17 16:22 05/20/17 16:22 05/20/17 16:22 05/20/17 16:22 05/20/17 16:22 Microbiology 05/10/17 16:30 Gram Stain - Final Elbow - Eswab Laboratory Results 05/19/17 04:33 05/19/17 04:33 05/19/17 05/20/17 05/21/17 06:59 06:59 06:59 Intake Total 800 1000 Balance 800 1000 PT 27.2 SEC (12.0-15.0) H 05/19/17 04:33 INR 2.49 (0.83-1.16) H 05/19/17 04:33 ICD10 Worksheet Patient Problems: Problems Problem Status Onset Afib Acute Lumbar radicular pain Acute Lumbar stenosis Acute
[2017-05-20] MEDS: FENOFIBRATE 145 MG TAB PO SCH (21:58)
[2017-05-20] MEDS: risperiDONE 0.5 MG TAB PO SCH (21:59)
[2017-05-20] MEDS: LEVOMILNACIPRAN HCL 80 MG PO SCH (22:00)
[2017-05-21] MEDS: DILTIAZEM 60 MG TAB PO SCH ×5 (01:34→23:35)
[2017-05-21] MEDS: LIOTHYRONINE SODIUM 25 MCG TAB PO SCH (08:14)
[2017-05-21] MEDS: ACETAMINOPHEN 500 MG TAB PO SCH ×3 (08:15→20:06)
[2017-05-21] MEDS: BENAZEPRIL HCL 20 MG TAB PO SCH (08:15)
[2017-05-21] MEDS: ARIPiprazole 2 MG TAB PO SCH (08:16)
[2017-05-21] MEDS: CHOLECALCIFEROL VIT D3 1,000 UNITS TAB PO SCH (08:16)
[2017-05-21] MEDS: SENNOSIDES/DOCUSATE SODIUM TAB PO SCH ×2 (08:17→20:01)
[2017-05-21] MEDS: POTASSIUM CL 10 MEQ TAB PO SCH (08:17)
[2017-05-21] MEDS: ALLOPURINOL 300 MG TAB PO SCH (08:18)
[2017-05-21] MEDS: buPROPion 100 MG TAB PO SCH ×3 (08:18→20:16)
[2017-05-21] MEDS: PANTOPRAZOLE SODIUM 40 MG TAB PO SCH (08:18)
--- NOTE | 2017-05-21 09:08 | WOCRNPDOC ---
WOCRN Advanced Assessment Note - Skin Integrity Problem, Advanced Assess Right Axilla Pressure Injury Dressing Type: Gauze Dressing Description: Clean/Dry, Intact Exudate Amount: Scant Exudate Characteristic(s): Sanguinous Integumentary Issue Intervention: Dressing Removed Wound Bed Constitution: Granulation Tissue (100%) Site Measurement - Head-to-Toe Length X Width X Depth (cm): Lateral: 1x2x0.7, Medial: 0.5x0.5x0.5 Skin Integrity Problem Comment: Both wounds healing well. Reviewed wound care plan with Lakia. Supplies supplied. Wound care will check in again next week.
--- NOTE | 2017-05-21 10:32 | SOAPPROG ---
LENORA Progress Note Assessment/Plan: Assessment: Mr. Bowie was struggling both before and now after his lumbar laminectomy both with features of delirium as well as poor activity and failure to thrive. We had hoped a lumbar laminectomy would improve his mobility and he has been able to stand and walk a couple of steps after the surgery which was an improvement. He continues to languish somewhat and is not safe to go home. It is my feeling that his overall condition will improve in time. I favor continued hospitalization here through the weekend so we can continue to observe his progress. We appreciate the help of the medicine service. continue PT and work at mobilizing him. they did get a stand assist chair yesterday and he stood with assistance. we will keep pushing this. I suspect it will be some time before he recovers. He will likely need an extended stay at a SNF or rehab if he can participate. Plan: 05/19/17 12:06 05/19/17 12:10 05/20/17 12:07 05/21/17 10:31 Subjective: continues to wax and wane with confusion. he is fully awake this morning but confused. his spirits were good. Objective: Vital Signs Temp Pulse Resp BP Pulse Ox 36.7 C 112 H 17 98/72 L 95 05/21/17 07:22 05/21/17 07:22 05/21/17 07:22 05/21/17 07:22 05/21/17 07:22 Microbiology 05/10/17 16:30 Gram Stain - Final Elbow - Eswab Laboratory Results 05/19/17 04:33 05/19/17 04:33 05/20/17 05/21/17 05/22/17 05:59 05:59 05:59 Intake Total 1000 100 Balance 1000 100 PT 27.2 SEC (12.0-15.0) H 05/19/17 04:33 INR 2.49 (0.83-1.16) H 05/19/17 04:33 moves his feet fine ICD10 Worksheet Patient Problems: Problems Problem Status Onset Afib Acute Lumbar radicular pain Acute Lumbar stenosis Acute
[2017-05-21] MEDS: WARFARIN SODIUM 5 MG TAB PO SCH (16:18)
--- NOTE | 2017-05-21 17:17 | HOSPPROG ---
Hospitalist Progress Note Assessment/Plan: DIAGNOSES: -acute encephalopathy, multifactorial ( he does have hx of previous episodes of this ) -status post surgery for spinal stenosis, no surgical complications directly -recent nonunion and arm fracture with open reduction internal fixation elsewhere, some evidence wound issues but no direct current evidence of infection -atrial fibrillation, rate controlled, on chronic anticoagulation -history of obstructive sleep apnea -bipolar disorder stable on medication PLANS: Continue to avoid medications with central nervous system side effects Encourage normal oral intake as able Continue PT and OT and as able Try to keep him on a normal sleep-wake cycle as able Follow wounds closely DVT prophylaxis SUBJECTIVE: Again today is very normally conversant and interactive but remains delirious He has no specific complaints himself and feels he is ready for discharge Per therapists his mobility and safety remain fairly limited and certainly his awareness of his safety issues limited OBJECTIVE Vitals reviewed: Stable in sinus rhythm with no fever Exam: wide awake today, very interactive and conversational, relaxed; remains quite disoriented but responds normally to questions/commands otherwise, essentially unchanged from yesterday skin warm dry color ok resps not labored lungs clear BSs heart regular abd soft nondistended nontender, bowel sounds present limbs warm, no edema iv site ok Objective: Vital Signs Temp Pulse Resp BP Pulse Ox 36.7 C 122 H 15 99/67 L 96 05/21/17 16:00 05/21/17 17:10 05/21/17 16:00 05/21/17 17:10 05/21/17 16:00 Microbiology 05/10/17 16:30 Gram Stain - Final Elbow - Eswab Laboratory Results 05/19/17 04:33 05/19/17 04:33 05/20/17 05/21/17 05/22/17 06:59 06:59 06:59 Intake Total 1000 100 Balance 1000 100 PT 27.2 SEC (12.0-15.0) H 05/19/17 04:33 INR 2.49 (0.83-1.16) H 05/19/17 04:33 ICD10 Worksheet Patient Problems: Problems Problem Status Onset Afib Acute Lumbar radicular pain Acute Lumbar stenosis Acute
[2017-05-21] MEDS: risperiDONE 0.5 MG TAB PO SCH (20:01)
[2017-05-21] MEDS: LEVOMILNACIPRAN HCL 80 MG PO SCH (20:03)
[2017-05-22] MEDS ORDERED: DILTIAZEM 60 MG TAB PO ONE (04:18)
[2017-05-22 05:35] LABS: INR 4.25 (0.83-1.16); PROTIME(PATIENT) 41.7 SEC (12.0-15.0)
[2017-05-22] MEDS: DILTIAZEM 60 MG TAB PO SCH ×3 (06:31→17:51)
--- NOTE | 2017-05-22 07:22 | NEUSURGPN ---
Date of Surgery: 05/10/17 Post Op Day: 12 Assessment/Plan: Assessment: 76 yo male that is s/p L4/5 laminectomy POD #12 Plan: -Mr. Bowie was struggling both before and now after his lumbar laminectomy both with features of delirium as well as poor activity and failure to thrive. We had hoped a lumbar laminectomy would improve his mobility and he has been able to stand and walk a couple of steps after the surgery which was an improvement. He continues to languish somewhat and is not safe to go home -our feeling is that his overall condition will improve in time -recommend placement -PT/OT-CPM -call with any questions or concerns -we appreciate the help of the medicine service -continue PT and work at mobilizing him -he will likely need an extended stay at a SNF or rehab if he can participate -Elbow cultures show claudia rodriguez neg-ID believes it to be a contaminant-his elbow and shoulder incisions look good -please notify NS with any change in neuro/motor exam Subjective: No new complaints or concerns. No f/c/n/v/d. No alarcon/neck/chest/abd or gu complaints. Objective: Awake. Alert. PERRLA Incision with dressing c/d/i Muscle strength- wiggling toes and moving ankles up and down but limited exam this morning LE Diffuse weakness at 4/5 Neuro Check Frequency: per routine Urinary Catheter in Place: No - Physician Discussed Patient with : Kevin Patient Seen by : Kevin Neurosurgery Physical Exam - Vitals, I&O, Labs I and O 05/21/17 05/22/17 05/23/17 05:59 05:59 05:59 Intake Total 100 300 Balance 100 300 Intake: Oral (ml) 100 300 Other: Number of Voids Incontinence 3 2 Microbiology 05/10/17 16:30 Gram Stain - Final Elbow - Eswab Vital Signs Temp Pulse Resp BP Pulse Ox 36.3 C 128 H 21 H 134/83 H 92 05/22/17 04:00 05/22/17 06:31 05/22/17 04:00 05/22/17 06:31 05/22/17 04:00 Laboratory Results 05/19/17 04:33 05/19/17 04:33 ICD10 Worksheet Patient Problems: Problems Problem Status Onset Afib Acute Lumbar radicular pain Acute Lumbar stenosis Acute - ICD10 Problem Qualifiers (1) Lumbar stenosis (2) Lumbar radicular pain (3) Afib Qualifiers: Atrial fibrillation type: A
[2017-05-22] MEDS: CHOLECALCIFEROL VIT D3 1,000 UNITS TAB PO SCH (08:48)
[2017-05-22] MEDS: BENAZEPRIL HCL 20 MG TAB PO SCH (08:49)
[2017-05-22] MEDS: SENNOSIDES/DOCUSATE SODIUM TAB PO SCH ×2 (08:49→21:49)
[2017-05-22] MEDS: LIOTHYRONINE SODIUM 25 MCG TAB PO SCH (08:49)
[2017-05-22] MEDS: ARIPiprazole 2 MG TAB PO SCH (08:50)
[2017-05-22] MEDS: buPROPion 100 MG TAB PO SCH ×3 (08:50→21:50)
[2017-05-22] MEDS: ALLOPURINOL 300 MG TAB PO SCH (08:50)
[2017-05-22] MEDS: POTASSIUM CL 10 MEQ TAB PO SCH (08:51)
[2017-05-22] MEDS: ACETAMINOPHEN 500 MG TAB PO SCH ×3 (08:51→21:49)
[2017-05-22] MEDS: PANTOPRAZOLE SODIUM 40 MG TAB PO SCH (08:58)
--- NOTE | 2017-05-22 11:33 | HOSPPROG ---
Hospitalist Progress Note Assessment/Plan: Assessment: 76 yo M p/w persistent Afib and RVR, w/ severe stenosis requiring lumbar lami Plan: # severe spinal stenosis. s/p laminectomy by Dr Brown, appreciate ongoing care - given encephalopathy, try to minimize narcotics # a-fib, persistent. RVR uncontrolled w/ rate 130-150 (tele personally interpreted), requires ongoing tele monitoring and uptitration of dilt to 90mg q6 + ongoing bystolic - INR supratherapeutic, hold coumadin today, repeat level tomorrow # recent humeral fracture, non-union s/p ORIF, and axillary infection. on minocycline suppressive therapy - primary is Dr. Tamayo # elbow swab + ENROLLMENT SPECIALIST. ID consulting, likely contaminant # acute on chronic encephalopathy. evidenced by global brain dysfunction characterized as disorganized thought process, disoriented, 08/16 on MMSE - minimize sedating meds # bipolar. stable, cont abilify, wellbutrin, tapered lamictal 200->100mg daily # HTN. chronic, stop ACEi, uptitrate CCB diet. regular ppx. high risk, on coumadin code. full dispo. ADD 05/23 vs. 05/24, pending stabilization of afib and encephalopathy high level of medical complexity, high risk for worsening morbidity/mortality, 2 /2 issues outlined above. Subjective: patient believes he's in "a hot roldan" Objective: Vital Signs Temp Pulse Resp BP Pulse Ox 36.6 C 141 H 16 103/76 95 05/22/17 07:36 05/22/17 10:39 05/22/17 07:36 05/22/17 10:39 05/22/17 07:36 Microbiology 05/10/17 16:30 Gram Stain - Final Elbow - Eswab Laboratory Results 05/19/17 04:33 05/19/17 04:33 05/21/17 05/22/17 05/23/17 05:59 05:59 05:59 Intake Total 100 300 Balance 100 300 PT 41.7 SEC (12.0-15.0) H 05/22/17 05:02 INR 4.25 (0.83-1.16) H 05/22/17 05:02 - Physical Exam Constitutional: no apparent distress, not in pain, chronically ill appearing, No uncomfortable Cardiovascular: irregularly irregular, tachycardia, No systolic murmur, No edema Respiratory: no respiratory distress, no rales or rhonchi, clear to auscultation Gastrointestinal: normoactive bowel sounds, soft, non-tender abdomen, no palpable masses, distension (moderately) Neurologic: sensation intact bilaterally, other (AAOx1 (name only)), No weakness (motor 5/5 bilat), No facial droop Psychiatric: not anxious, encephalopathic (disorganized thoughts), poor insight , poor memory, No agitated ICD10 Worksheet Patient Problems: Problems Problem Status Onset Lumbar stenosis Acute Lumbar radicular pain Acute Afib Acute
[2017-05-22] MEDS ORDERED: NS 1,000 ML IV ONE (13:18)
[2017-05-22] MEDS: NEBIVOLOL HCL 5 MG TAB PO SCH (21:47)
[2017-05-22] MEDS: FENOFIBRATE 145 MG TAB PO SCH (21:50)
[2017-05-22] MEDS: risperiDONE 0.5 MG TAB PO SCH (21:50)
[2017-05-22] MEDS: LEVOMILNACIPRAN HCL 80 MG PO SCH (21:52)
[2017-05-23] MEDS: DILTIAZEM 60 MG TAB PO SCH ×5 (00:21→23:58)
[2017-05-23 05:21] LABS: % IMMATURE GRANULYOCYTES 1.2 % (0.0-1.1); ABSOLUTE IMMATURE GRANULOCYTES 0.06 10^3/uL (0.00-0.10); ADD DIFF? NO; ADD MORPH? NO; ADD SCAN? NO; ATYPICAL LYMPHOCYTE FLAG 10 (0-99); FRAGMENT RBC FLAG 0 (0-99); HEMATOCRIT 30.4 % (40.0-51.0); HEMOGLOBIN 10.2 g/dL (13.7-17.5); LEFT SHIFT FLG 0 (0-99); LIPEMIA HEMOLYSIS FLAG 80 (0-99); MEAN CELL HEMOGLOBIN 30.8 pg (27.9-34.1); MEAN CELL HEMOGLOBIN CONCENTR. 33.6 g/dL (32.4-36.7); MEAN CELL VOLUME 91.8 fL (81.5-99.8); MEAN PLATELET VOLUME 10.2 fL (8.7-11.7); PLATELET CLUMPS FLAG 10 (0-99); PLATELET COUNT 342 10^3/uL (150-400); RED BLOOD CELL COUNT 3.31 10^6/uL (4.40-6.38); RED CELL DISTRIBUTION WIDTH 14.6 % (11.5-15.2)
[2017-05-23 05:29] LABS: INR 4.46 (0.83-1.16); PROTIME(PATIENT) 43.3 SEC (12.0-15.0)
[2017-05-23 05:40] LABS: ANION GAP 13 mEq/L (8-16); CALCIUM 9.3 mg/dL (8.5-10.4); CARBON DIOXIDE 22 mEq/l (22-31); CHLORIDE 106 mEq/L (97-110); CREATININE 0.8 mg/dL (0.7-1.3); GLOMERULAR FILTRATION RATE > 60; GLUCOSE 101 mg/dL (70-100); POTASSIUM 3.3 mEq/L (3.5-5.2); SODIUM 141 mEq/L (134-144)
[2017-05-23] MEDS: ALLOPURINOL 300 MG TAB PO SCH (08:16)
[2017-05-23] MEDS: SENNOSIDES/DOCUSATE SODIUM TAB PO SCH ×2 (08:16→21:16)
[2017-05-23] MEDS: ACETAMINOPHEN 500 MG TAB PO SCH ×3 (08:16→21:17)
[2017-05-23] MEDS: CHOLECALCIFEROL VIT D3 1,000 UNITS TAB PO SCH (08:17)
[2017-05-23] MEDS: LIOTHYRONINE SODIUM 25 MCG TAB PO SCH (08:17)
[2017-05-23] MEDS: ARIPiprazole 2 MG TAB PO SCH (08:17)
[2017-05-23] MEDS: POTASSIUM CL 10 MEQ TAB PO SCH (08:18)
[2017-05-23] MEDS: buPROPion 100 MG TAB PO SCH ×3 (08:18→21:16)
[2017-05-23] MEDS: PANTOPRAZOLE SODIUM 40 MG TAB PO SCH (08:18)
--- NOTE | 2017-05-23 09:39 | NEUSURGPN ---
Date of Surgery: 05/10/17 Post Op Day: 13 Assessment/Plan: Assessment: 76 yo male that is s/p L4/5 laminectomy POD #13 Plan: -Mr. Bowie was struggling both before and now after his lumbar laminectomy both with features of delirium as well as poor activity and failure to thrive. We had hoped a lumbar laminectomy would improve his mobility and he has been able to stand and walk a couple of steps after the surgery which was an improvement. He continues to languish somewhat with confusion and is not safe to go home -our feeling is that his overall condition will improve in time -recommend placement -PT/OT-CPM -we appreciate the help of the medicine service -he will likely need an extended stay at a SNF or rehab if he can participate -Elbow cultures show claudia rodriguez neg-ID believes it to be a contaminant-his elbow and shoulder incisions look good -please notify NS with any change in neuro/motor exam Patient discussed with Dr Brown Subjective: Patient feels legs feel better Objective: Awake. Alert. PERRLA Incision with dressing c/d/i Muscle strength- wiggling toes and moving ankles up and down but limited exam this morning LE Diffuse weakness at 4/5 Neuro Check Frequency: per routine Urinary Catheter in Place: No - Physician Discussed Patient with : Kevin Neurosurgery Physical Exam - Vitals, I&O, Labs I and O 05/22/17 05/23/17 05/24/17 05:59 05:59 05:59 Intake Total 300 800 Output Total 400 Balance 300 400 Intake: Oral (ml) 300 800 Output: Urine (ml) 400 Incontinence 400 Other: Number of Voids Incontinence 2 1 Microbiology 05/10/17 16:30 Gram Stain - Final Elbow - Eswab Vital Signs Temp Pulse Resp BP Pulse Ox 36.6 C 89 16 115/72 95 05/23/17 08:00 05/23/17 08:00 05/23/17 08:00 05/23/17 08:00 05/23/17 08:00 Laboratory Results 05/23/17 05:06 05/23/17 05:06 ICD10 Worksheet Patient Problems: Problems Problem Status Onset Afib Acute Lumbar radicular pain Acute Lumbar stenosis Acute
[2017-05-23] MEDS ORDERED: PROTOCOL POTASSIUM 1 DOSE MISC PRN (14:01)
--- NOTE | 2017-05-23 14:01 | HOSPPROG ---
Hospitalist Progress Note Assessment/Plan: Patient is a 76 yo M p/w persistent Afib and RVR, w/ severe stenosis requiring lumbar laminectomy. He was transferred from [place]. He was hospitalized there from April 26 thru May 09. He was admitted there for humerus fracture he also had an axillary to infection requiring wound VAC and short course of vancomycin. His outpatient psychiatrist has recommended stopping Lamictal old and this has been tapered off in [facility]. Today is my first encounter with the patient, chart reviewed. *severe spinal stenosis s/p laminectomy per Dr Brown continue physical therapy and occupational therapy spoke with his and recommending that he would benefit from a snf facility *encephalopathy/acute on chronic likely due to narcotics has underlying bipolar disorder quite likely the combination of medications caused significant delirium CT of head shows nothing acute/age related volume loss *hypokalemia added oral protocol *Supratherapeutic INR Coumadin on hold *AFIB w RVR rate in upper 90's to low 100's Diltiazem 90 mg q 6 *htn: 136/92 *bipolar disorder: Abilify, Lamictal decreased to 100 mg daily overall well managed per his *elbow swab/ likely not an infection/staph coag negative was seen by ID *recent axillary infection not on treatment *dvt prophylaxis: anticoagulated # dispo - pending/will ask CM to give his a list of SNF Subjective: Srini is not c/o pain. Objective: Vital Signs Temp Pulse Resp BP Pulse Ox 36.7 C 107 H 18 136/92 H 97 05/23/17 11:12 05/23/17 12:20 05/23/17 11:12 05/23/17 12:20 05/23/17 11:12 Microbiology 05/10/17 16:30 Gram Stain - Final Elbow - Eswab Laboratory Results 05/23/17 05:06 05/23/17 05:06 05/22/17 05/23/17 05/24/17 05:59 05:59 05:59 Intake Total 300 800 Output Total 400 Balance 300 400 PT 43.3 SEC (12.0-15.0) H 05/23/17 05:06 INR 4.46 (0.83-1.16) H 05/23/17 05:06 - Physical Exam Constitutional: no apparent distress, appears nourished, uncomfortable Eyes: PERRL Ears, Nose, Mouth, Throat: hearing normal Cardiovascular: irregularly irregular Respiratory: no respiratory distress Gastrointestinal: normoactive bowel sounds, other (large and round) Skin: warm Musculoskeletal: generalized weakness Neurologic: other (alert and oriented to himself and ) Psychiatric: interacting appropriately, poor memory, No not encephalopathic ( slightly) ICD10 Worksheet Patient Problems: Problems Problem Status Onset Lumbar stenosis Acute Lumbar radicular pain Acute Afib Acute
[2017-05-23] MEDS: WARFARIN SODIUM 5 MG TAB PO SCH (16:14)
--- NOTE | 2017-05-23 17:09 | HOSPPROG ---
Hospitalist Progress Note Assessment/Plan: Patient is a 76 yo M p/w persistent Afib and RVR, w/ severe stenosis requiring lumbar laminectomy. He was transferred from [place]. He was hospitalized there from April 26 thru May 09. He was admitted there for humerus fracture he also had an axillary to infection requiring wound VAC and short course of vancomycin. His outpatient psychiatrist has recommended stopping Lamictal old and this has been tapered off in [facility]. Today is my first encounter with the patient, chart reviewed. *severe spinal stenosis s/p laminectomy per Dr Brown continue physical therapy and occupational therapy spoke with his and recommending that he would benefit from a jail facility *encephalopathy/acute on chronic likely due to narcotics has underlying bipolar disorder quite likely the combination of medications caused significant delirium CT of head shows nothing acute/age related volume loss *hypokalemia added oral protocol *Supratherapeutic INR Coumadin on hold *AFIB w RVR rate in upper 90's to low 100's Diltiazem 90 mg q 6 *htn: 136/92 *bipolar disorder: Abilify, Lamictal decreased to 100 mg daily overall well managed per his *elbow swab/ likely not an infection/staph coag negative was seen by ID *recent axillary infection not on treatment *dvt prophylaxis: anticoagulated # dispo - pending/will ask CM to give his a list of SNF * plan. Patient is a little bit more lethargic this afternoon. Will get an echocardiogram since he has had persistent atrial fibrillation, check a BNP in the a.m. and will check a chest x-ray. Objective: Vital Signs Temp Pulse Resp BP Pulse Ox 36.5 C 95 30 H 132/85 H 99 05/23/17 16:00 05/23/17 16:00 05/23/17 16:00 05/23/17 16:00 05/23/17 16:00 Microbiology 05/10/17 16:30 Gram Stain - Final Elbow - Eswab Laboratory Results 05/23/17 05:06 05/23/17 05:06 05/22/17 05/23/17 05/24/17 05:59 05:59 05:59 Intake Total 300 800 Output Total 400 Balance 300 400 PT 43.3 SEC (12.0-15.0) H 05/23/17 05:06 INR 4.46 (0.83-1.16) H 05/23/17 05:06 ICD10 Worksheet Patient Problems: Problems Problem Status Onset Afib Acute Lumbar radicular pain Acute Lumbar stenosis Acute
[2017-05-23] MEDS ORDERED: MAG HYDROX/AL HYDROX/SIMETH 30 ML UDCUP PO PRN (17:24)
[2017-05-23] MEDS: NEBIVOLOL HCL 5 MG TAB PO SCH (21:17)
[2017-05-23] MEDS: FENOFIBRATE 145 MG TAB PO SCH (21:17)
[2017-05-23] MEDS: risperiDONE 0.5 MG TAB PO SCH (21:17)
[2017-05-23] MEDS: LEVOMILNACIPRAN HCL 80 MG PO SCH (21:24)
[2017-05-23 22:32] LABS: POTASSIUM 3.7 mEq/L (3.5-5.2)
[2017-05-23] MEDS ORDERED: POTASSIUM CL 10 MEQ TAB PO ONE (22:47)
[2017-05-24] MEDS: CALCIUM CARBONATE 500 MG CHEWABLE TAB PO PRN ×2 (01:40→05:43)
[2017-05-24] MEDS: DILTIAZEM 60 MG TAB PO SCH ×4 (05:43→23:52)
[2017-05-24 06:05] LABS: POTASSIUM 3.7 mEq/L (3.5-5.2)
[2017-05-24 06:09] LABS: INR 4.07 (0.83-1.16); PROTIME(PATIENT) 40.3 SEC (12.0-15.0)
[2017-05-24] MEDS: SENNOSIDES/DOCUSATE SODIUM TAB PO SCH ×2 (07:28→20:27)
--- NOTE | 2017-05-24 07:46 | NEUSURGPN ---
Assessment/Plan: Assessment: 76 yo male that is s/p L4/5 laminectomy POD #14 Plan: - Appropriate this morning, slow with following commands -recommend placement -PT/OT-CPM -we appreciate medicine management -he will likely need an extended stay at a SNF or rehab if he can participate -Elbow cultures show staph coag neg-ID believes it to be a contaminant-his elbow and shoulder incisions look good -please notify NS with any change in neuro/motor exam Patient discussed with Dr Brown Subjective: Patient denies any new roldan, numbness, tingling or weakness Objective: NAD Alert and oriented to person and situation MAEx4 RLE 5-/5 diffusely LLE diffusely 4/5 Incision c/d/i - Physician Discussed Patient with : Kevin Neurosurgery Physical Exam - Vitals, I&O, Labs I and O 05/23/17 05/24/17 05/25/17 05:59 05:59 05:59 Intake Total 800 300 Output Total 400 500 Balance 400 -200 Intake: Oral (ml) 800 300 Output: Urine (ml) 400 500 Incontinence 400 500 Other: Number of Voids Incontinence 1 1 Number of Stools Incontinence 1 Microbiology 05/10/17 16:30 Gram Stain - Final Elbow - Eswab Vital Signs Temp Pulse Resp BP Pulse Ox 36.9 C 114 H 19 131/79 H 100 05/24/17 04:00 05/24/17 05:43 05/24/17 04:00 05/24/17 05:43 05/24/17 04:00 Laboratory Results 05/23/17 05:06 05/24/17 05:50 ICD10 Worksheet Patient Problems: Problems Problem Status Onset Afib Acute Lumbar radicular pain Acute Lumbar stenosis Acute
[2017-05-24] MEDS ORDERED: POTASSIUM CL 10 MEQ TAB PO ONE ×2 (07:53→23:03)
[2017-05-24] MEDS: ACETAMINOPHEN 500 MG TAB PO SCH ×3 (09:21→23:54)
[2017-05-24] MEDS: PANTOPRAZOLE SODIUM 40 MG TAB PO SCH (09:22)
[2017-05-24] MEDS: buPROPion 100 MG TAB PO SCH ×3 (09:22→23:54)
[2017-05-24] MEDS: CHOLECALCIFEROL VIT D3 1,000 UNITS TAB PO SCH (09:22)
[2017-05-24] MEDS: ALLOPURINOL 300 MG TAB PO SCH (09:22)
[2017-05-24] MEDS: ARIPiprazole 2 MG TAB PO SCH (09:23)
[2017-05-24] MEDS: LIOTHYRONINE SODIUM 25 MCG TAB PO SCH (09:23)
[2017-05-24] MEDS: POTASSIUM CL 10 MEQ TAB PO SCH (09:36)
--- NOTE | 2017-05-24 11:50 | ECHO ---
[id number] + + [address] : : [place] [address] : : [phone] + + Adult Echocardiographic Report + ---+ :Name: SALAS ANDRADE MStudy Date: 05/24/2017 10:05 AM : : Hospital Admission Number: [id number] Location: 358: :: 1940 Gender: Male Height: 73 in : :Age: 76 yrs Race: WH Weight: 200 lb : :Reason For Study: Patient fatigued/A fib with RVR : : BSA: 2.2 meters2 : + ---+ MMode/2D Measurements & Calculations LVIDd: 3.8 cm EDV(Teich): 60.3 ml Ao root diam: 4.5 cm LA dimension: 4.9 cm Normal Measurement Values: + + :LVIDd (3.5-5.7cm) IVSd (0.6-1.1cm) LVPWd (0.6-1.1cm) Aortic Root (2.0-3.7cm)Left Atrium (1.5-4.0cm): :LV Vol(d) (76-115ml) LV Vol(s) (29-48ml) Ejec Fraction (50-65%)PV Iggy (0.6- 1.2m/s) TV Iggy (0.4-1.0m/s) : :MV E Iggy (0.8-1.0m/s)MV A Iggy (0.3-1.0m/s)LVOT Iggy (0.7-1.2m/s) Asc Ao Iggy ( 0.9-1.8m/s) : + + Doppler Measurements & Calculations MV E max iggy: 84.9 cm/sec Ao V2 max: 96.4 cm/sec Ao max P.7 mmHg Left Ventricle The left ventricle is normal in size. There is mild concentric left ventricular hypertrophy. Left ventricular systolic function is normal. Ejection Fraction = 70-75%. No regional wall motion abnormalities noted. Right Ventricle The right ventricle is normal in size and function. Atria The left atrium is mildly dilated. Right atrial size is normal. The interatrial septum is intact with no evidence for an atrial septal defect. Mitral Valve The mitral valve is normal in structure and function. There is no evidence of mitral valve prolapse. There is no mitral valve stenosis. There is mild mitral regurgitation. Tricuspid Valve Normal tricuspid valve. Aortic Valve The aortic valve opens well. There is no aortic stenosis. There is no aortic insufficiency. Pulmonic Valve The pulmonic valve is not well visualized. There is no pulmonic valvular regurgitation. Great Vessels The aortic root is normal size. Pericardium/Pleural There is no pericardial effusion. There is a fat pad seen. Conclusion A complete two-dimensional transthoracic echocardiogram was performed (2D, M-mode, Doppler and color flow Doppler). Limited views were obtained. Left ventricular systolic function is normal. There is mild concentric left ventricular hypertrophy. Ejection Fraction = 70-75%. There is a fat pad seen. The left atrium is mildly dilated. There is mild mitral regurgitation. Final Reading Physician: Wing Vargas signed on 05/24/2017 11:48 AM Ordering Physician: Myla Sparks Performed By: Jolie Segura RDCS
--- NOTE | 2017-05-24 12:53 | HOSPPROG ---
Hospitalist Progress Note Assessment/Plan: Patient is a 76 yo M p/w persistent Afib and RVR, w/ severe stenosis requiring lumbar laminectomy. He was transferred from [place]. He was hospitalized there from April 26 thru May 09. He was admitted there for humerus fracture he also had an axillary to infection requiring wound VAC and short course of vancomycin. His outpatient psychiatrist has recommended stopping Lamictal and this has been tapered off in [facility]. *severe spinal stenosis s/p laminectomy per Dr Brown continue physical therapy and occupational therapy spoke with his and recommending that he would benefit from a residential facility *encephalopathy/acute on chronic/significant delirium has been off narcotics/ do not hink this is r/t bipolar will ask neurology to see/appreciate Dr Nice CT of head shows nothing acute/age related volume loss *hypokalemia added oral protocol *Supratherapeutic INR Coumadin dc for now *AFIB w RVR rate in upper 90's to low 100's Diltiazem 90 mg q 6 reviewed the patient's echocardiogram, he has mild LVH his EF is at 70-75% BMP is elevated but will not diurese at this time because he has not been eating well *htn: 142/82 *bipolar disorder: Abilify, Lamictal decreased to 100 mg daily overall well managed per his *elbow swab/ likely not an infection/staph coag negative was seen by ID *recent axillary infection not on treatment *dvt prophylaxis: anticoagulated # dispo - pending/will ask CM to give his a list of SNF * plan. reviewed his care with Dr. Nice. Dr Nice spoke with the patient's , the patient has had delirium after having surgeries. I believe he just needs time. Once he is improved he can go to [facility] residential facility. In addition his Coumadin will remain on hold INR is at 4.07. Will discontinue Coumadin because of the elevated INR but this will need to be resumed once INR stabilizes. Subjective: Lion is very confused. Has no complaints Objective: Vital Signs Temp Pulse Resp BP Pulse Ox 36.9 C 101 H 20 142/82 H 100 05/24/17 11:52 05/24/17 12:35 05/24/17 12:35 05/24/17 11:52 05/24/17 12:38 Microbiology 05/10/17 16:30 Gram Stain - Final Elbow - Eswab Laboratory Results 05/23/17 05:06 05/24/17 05:50 05/23/17 05/24/17 05/25/17 05:59 05:59 05:59 Intake Total 800 300 Output Total 400 500 Balance 400 -200 PT 40.3 SEC (12.0-15.0) H 05/24/17 05:50 INR 4.07 (0.83-1.16) H 05/24/17 05:50 - Physical Exam Constitutional: chronically ill appearing Eyes: PERRL Ears, Nose, Mouth, Throat: hearing normal Cardiovascular: irregularly irregular Respiratory: no respiratory distress Gastrointestinal: normoactive bowel sounds Skin: warm Musculoskeletal: generalized weakness Neurologic: other ( patient is alert and only oriented to himself, knows who his is) Psychiatric: interacting appropriately, poor insight, poor memory ICD10 Worksheet Patient Problems: Problems Problem Status Onset Afib Acute Lumbar radicular pain Acute Lumbar stenosis Acute
[2017-05-24] MEDS: WARFARIN SODIUM 5 MG TAB PO SCH (15:14)
--- NOTE | 2017-05-24 15:50 | GCON ---
[f rep st] CONSULTATION NEUROLOGY CONSULTATION REFERRING PROVIDER: Myla Sparks NP. CHIEF COMPLAINT: Altered mentation. BILLING INFORMATION: 70 total minutes on the floor reviewing the patient's extensive medical and neurosurgical and psychiatric history, along with labs and imaging. HISTORY OF PRESENT ILLNESS: The patient is a very pleasant 76-year-old gentleman with a history of bipolar disorder, with significant depression. The patient had a vagal nerve stimulator placed for depression some years ago in [place]. He has an outpatient psychiatrist, Dr. Cobian, who manages his depression and bipolar. He has been having problems with balance and falling, and is been being evaluated by Dr. Cynthia Gilman, Neurology, at [facility]. This has led to a diagnosis of significant lumbar spinal stenosis. He also has atrial fibrillation, on anticoagulation. The patient had a fall, around 3 weeks prior to this hospitalization, resulting in a fracture in his right upper extremity. He had general anesthesia around 3 weeks ago to repair it, and had an identical delirium, per his , for 1 week , afterward. He normalized for a week, and then had general anesthesia again for laminectomy here at [facility] on May 10, 2017. Since that time, again he is having delirium symptoms of waxing and waning levels of consciousness, appetite , and disturbed sleep/wake cycles. He also had some sundowning, which has resolved. REVIEW OF SYSTEMS: A 10-point review of systems was done and only pertinent to the HPI. For past medical history, social history, family history, home medications, allergies, please see Dr. Ross's history and physical dated 05/09/2017. PHYSICAL EXAMINATION: VITAL SIGNS: Blood pressure is 131/79, temperature is 36.9, respirations 20, saturating 100%. GENERAL: The patient is in no acute distress. Very pleasant. He was awake and alert while I examined him. NEUROLOGIC: He named objects 5 out of 5, repeated 5 out of 5, and followed commands 5 out 5. He had no aphasia. However, at times he got distracted and answered questions other than the ones I was asking. Cranial nerve exam: Normal extraocular movements. Normal facial sensation. Normal facial strength bilaterally. He had somewhat of a lagging eyelid on the left, which is his baseline, per family. Motor exam: The patient does have a little distal weakness in his right upper extremity, in the radial nerve distribution with finger extension. This is likely related to his recent fracture with radial nerve involvement. In the lower extremities, his strength was unclear. He was not activating fully, and certainly there may be some radicular weakness below his level of participation. His left upper extremity had normal strength. Sensation to light touch was normal throughout. IMPRESSION AND PLAN: 1. Delirium. 2. Recent lumbosacral laminectomy. 3. Atrial fibrillation, on anticoagulation. My overall impression is that the patient has a delirium that is multifactorial. He had a similar delirium just a few weeks ago after general anesthesia for repairing his arm fracture. Based on the close spacing of these events, he may have a more protracted delirium this time, up to 2 or 4 weeks until full resolution. He and his were counseled at length. Certainly, normalizing sleep/wake cycles, by keeping him awake during the daytime with natural light and stimulation, would be helpful. He no longer has any belligerent-type sundowning behavior. I think that has resolved. He can be discharged to a group home facility or inpatient rehabilitation, when released by Neurosurgery and Internal Medicine. 4 to 8 weeks after discharge from all therapies, he can follow up with Dr. Gilman , his outpatient neurologist, to review and see if any other issues need to be addressed. They will follow up with their psychiatrist as well and discuss findings with psychiatrist who manages the VNS for depression. I do not see any clinical historical feature or physical exam findings to suggest stroke. The patient's current INR is supratherapeutic, in fact, and most recent head CT scan showed no signs of infarct or hemorrhage. Plan was discussed in detail with the patient, family, and Internal Medicine. We will sign off and follow up as needed. Please do not hesitate to call with any questions or changes in neurologic status with this very pleasant patient. /[id number]/MODL MTDD
[2017-05-24 18:17] LABS: POTASSIUM 3.5 mEq/L (3.5-5.2)
[2017-05-24] MEDS: FENOFIBRATE 145 MG TAB PO SCH (20:24)
[2017-05-24] MEDS: NEBIVOLOL HCL 5 MG TAB PO SCH (20:24)
[2017-05-24] MEDS: risperiDONE 0.5 MG TAB PO SCH (20:24)
[2017-05-24] MEDS: LEVOMILNACIPRAN HCL 80 MG PO SCH (20:27)
[2017-05-25 04:58] LABS: INR 3.59 (0.83-1.16); PROTIME(PATIENT) 36.4 SEC (12.0-15.0)
[2017-05-25 05:09] LABS: POTASSIUM 3.5 mEq/L (3.5-5.2)
[2017-05-25] MEDS: DILTIAZEM 60 MG TAB PO SCH ×2 (06:00→12:41)
[2017-05-25] MEDS ORDERED: POTASSIUM CL 10 MEQ TAB PO ONE (09:12)
[2017-05-25] MEDS: CHOLECALCIFEROL VIT D3 1,000 UNITS TAB PO SCH (09:23)
[2017-05-25] MEDS: ALLOPURINOL 300 MG TAB PO SCH (09:24)
[2017-05-25] MEDS: LIOTHYRONINE SODIUM 25 MCG TAB PO SCH (09:35)
[2017-05-25] MEDS: ARIPiprazole 2 MG TAB PO SCH (09:35)
[2017-05-25] MEDS: POTASSIUM CL 10 MEQ TAB PO SCH (09:38)
[2017-05-25] MEDS: PANTOPRAZOLE SODIUM 40 MG TAB PO SCH (09:38)
[2017-05-25] MEDS: buPROPion 100 MG TAB PO SCH ×2 (09:38→15:16)
[2017-05-25] MEDS: ACETAMINOPHEN 500 MG TAB PO SCH (09:59)
[2017-05-25] MEDS: SENNOSIDES/DOCUSATE SODIUM TAB PO SCH (10:03)
[2017-05-25 12:11] VITALS: RESP 24; TEMP 97.8; O2SAT 100
[2017-05-25 12:44] VITALS: BP 99/78; PULSE 96
--- NOTE | 2017-05-25 13:19 | HOSPPROG ---
Hospitalist Progress Note Assessment/Plan: Patient is a 76 yo M p/w persistent Afib and RVR, w/ severe stenosis requiring lumbar laminectomy. He was transferred from [place]. He was hospitalized there from April 26 thru May 09. He was admitted there for humerus fracture he also had an axillary to infection requiring wound VAC and short course of vancomycin. His outpatient psychiatrist has recommended stopping Lamictal and this has been tapered off in [facility]. *severe spinal stenosis s/p laminectomy per Dr Brown continue physical therapy and occupational therapy recommending that he would benefit from a assisted facility *encephalopathy/acute on chronic/significant delirium has been off narcotics/ do not think this is r/t bipolar appreciate Dr Nice much better today CT of head shows nothing acute/age related volume loss *hypokalemia oral protocol *Supratherapeutic INR Coumadin on hold follow INR at SNF restart coumadin when able *AFIB w RVR rate in upper 90's to low 100's Diltiazem 90 mg q 6 echocardiogram, he has mild LVH his EF is at 70-75% BNP is elevated but will not diurese at this time because he has not been eating well *htn: stable *bipolar disorder: Abilify, Lamictal decreased to 100 mg daily overall well managed per his *elbow swab/ likely not an infection/staph coag negative was seen by ID *recent axillary infection not on treatment *dvt prophylaxis: anticoagulated # dispo - medically able to DC to SNF * plan. DC to SNF Coumadin will remain on hold. Will need to be resumed once INR stabilizes. Subjective: Up in chair. Feeling well. Minimal confusion. Objective: Vital Signs Temp Pulse Resp BP Pulse Ox 36.6 C 96 24 H 99/78 L 100 05/25/17 12:00 05/25/17 12:41 05/25/17 12:00 05/25/17 12:41 05/25/17 12:00 Microbiology 05/10/17 16:30 Gram Stain - Final Elbow - Eswab Anaerobic Culture - Final Staphylococcus Sp Coag Neg Laboratory Results 05/23/17 05:06 05/25/17 04:33 05/24/17 05/25/17 05/26/17 05:59 05:59 05:59 Intake Total 300 950 Output Total 500 1450 Balance -200 -500 PT 36.4 SEC (12.0-15.0) H 05/25/17 04:33 INR 3.59 (0.83-1.16) H 05/25/17 04:33 - Physical Exam Constitutional: no apparent distress, appears nourished, chronically ill appearing Eyes: PERRL, anicteric sclera, EOMI Ears, Nose, Mouth, Throat: moist mucous membranes, hearing normal, ears appear normal Cardiovascular: regular rate and rhythym, No JVD, No edema Respiratory: no respiratory distress, no rales or rhonchi, reduced air movement Gastrointestinal: No tenderness, No ascites, No guarding Skin: warm, normal color, No erythema Musculoskeletal: no joint effusions, muscular tenderness, generalized weakness Psychiatric: not anxious, not encephalopathic, poor insight, poor judgement ICD10 Worksheet Patient Problems: Problems Problem Status Onset Lumbar stenosis Acute Lumbar radicular pain Acute Afib Acute
--- NOTE | 2017-05-25 13:34 | PDIAF ---
- Diagnosis Diagnosis: Lumbar stenosis. Afib Code Status: Full Code - Medication Management Discharge Medications: Medications to Continue on Transfer Allopurinol [Allopurinol 300 MG (RX)] 300 mg PO DAILY 05/09/17 [Last Taken 05/08] Amlodipine Besylate/Benazepril [Amlodipine-Benazepril 10-20 mg] 1 each PO DAILY 05/09/17 [Last Taken 05/08/17] FENOFIBRATE 160 mg PO HS 05/09/17 [Last Taken 05/08/17] Nebivolol HCl [Bystolic] 20 mg PO DAILY 05/09/17 [Last Taken 05/08/17] Olmesartan/Hydrochlorothiazide [Benicar Hct 40-25 mg Tablet] 1 each PO DAILY [Last Taken 05/08/17] Potassium Chloride [Klor-Con 10] 10 meq PO DAILY 05/09/17 [Last Taken 05/08/17] buPROPion SR [Wellbutrin 150mg SR (*)] 300 mg PO DAILY 05/09/17 [Last Taken ] lamoTRIgine [Lamictal] 200 mg PO DAILY 05/09/17 [Last Taken 05/08/17] ARIPiprazole [Abilify 2 mg (*)] 1 mg PO DAILY tab 05/25/17 [Last Taken Unknown] Acetaminophen [Tylenol ES 500 mg (*)] 1,000 mg PO TID tab 05/25/17 [Last Taken Unknown] Calcium Carbonate [Tums 500MG (*)] 500 mg PO TID PRN tab.chew 05/25/17 [Last Taken Unknown] Cholecalciferol Vit D3 [Vitamin D3 (*)] 2,000 units PO DAILY tab 05/25/17 [ Last Taken Unknown] Diltiazem [Cardizem 60 MG (*)] 90 mg PO Q6HRS tab 05/25/17 [Last Taken Unknown] Fenofibrate [Tricor 145 mg (*)] 145 mg PO HS tab 05/25/17 [Last Taken Unknown] Levomilnacipran HCl [Fetzima] 80 mg PO HS 05/25/17 [Last Taken Unknown] Liothyronine Sodium [Cytomel 25 mcg (*)] 50 mcg PO DAILY tab 05/25/17 [Last Taken Unknown] Minocycline HCl [Minocin 50 mg (*)] 100 mg PO DAILY cap 05/25/17 [Last Taken Unknown] Nebivolol HCl [Bystolic 5 mg (*)] 10 mg PO HS tab 05/25/17 [Last Taken Unknown] Ondansetron Odt [Zofran Odt 4 mg (*)] 4 mg PO Q4HRS PRN tab 05/25/17 [Last Taken Unknown] Pantoprazole Sodium [Protonix 40mg (*)] 40 mg PO DAILY tab 05/25/17 [Last Taken Unknown] Potassium Cl [Klor-Con 10 meq (RX)] 10 meq PO DAILY tab 05/25/17 [Last Taken Unknown] Sennosides/Docusate Sodium [Senokot-S] 1 - 2 tab PO BID tab 05/25/17 [Last Taken Unknown] buPROPion [Wellbutrin 100mg (*)] 100 mg PO TID tab 05/25/17 [Last Taken Unknown ] risperiDONE [Risperdal 0.5mg (*)] 0.5 mg PO HS tab 05/25/17 [Last Taken Unknown ] Discharge Medications: Refer to the Discharge Home Medication list for PRN reason. - Orders Services needed: Registered Nurse, Physical Therapy, Occupational Therapy Diet Recommendation: no restrictions on diet Diet Texture: Regular Texture Diet Sanchez: Not applicable Wound Care Instructions: see wound care instructions on DC paperwork. OK to remove lumbar steri strips in 1 week Activity/Weight Bearing Restrictions: No bending, twisting or lifting over 10 lbs x 6 weeks - Labs/Radiology PT/INR Date: 05/26/17 (If INR Less than or eqaul to 3, please resume coumadin) - Follow Up Care Current Providers and Referrals: KAREN RODRIGUEZ [Primary Care Provider] -
--- NOTE | 2017-05-25 16:47 | SOAPPROG ---
SOAP Progress Note Assessment/Plan: Assessment: Awake and alert denies pain 76 yo male s/p L4/5 laminectomy Doing much better today. Participating with PT Plan: DC to rehab today. Medicine has cleared him to go to rehab. Subjective: Awake, alert, in bedside chair. Denies pain Objective: Vital Signs Temp Pulse Resp BP Pulse Ox 36.6 C 96 24 H 99/78 L 100 05/25/17 12:00 05/25/17 12:41 05/25/17 12:00 05/25/17 12:41 05/25/17 12:00 Microbiology 05/10/17 16:30 Gram Stain - Final Elbow - Eswab Anaerobic Culture - Final Staphylococcus Sp Coag Neg Laboratory Results 05/23/17 05:06 05/25/17 04:33 05/24/17 05/25/17 05/26/17 05:59 05:59 05:59 Intake Total 300 950 Output Total 500 1450 Balance -200 -500 PT 36.4 SEC (12.0-15.0) H 05/25/17 04:33 INR 3.59 (0.83-1.16) H 05/25/17 04:33 Incision: CDI No ESTEFANY Neuro: Oriented x 3 Follows commands 5-/5 strength in bilateral LE Symmetric strength sensation +Lt throughout ICD10 Worksheet Patient Problems: Problems Problem Status Onset Afib Acute Lumbar radicular pain Acute Lumbar stenosis Acute
--- NOTE | 2017-05-27 17:05 | ASMTCMCOM ---
CM Note CM Note Notes: Late entry due to [employer] down time: 05/23/17 [facility] is still following pt, concern is if he can tolerate the program. S/w pt & who are agreeable to referrals to [facility] and [facility]. CM to follow. Date Signed: 05/24/2017 03:45 PM Electronically Signed By:Jaclyn Macias
--- NOTE | 2017-05-27 17:07 | ASMTCMCOM ---
CM Note CM Note Notes: Pt medically stable for d/c, pt and chose [facility]. Orders sent, KIRSTEN Rooney to call report. Date Signed: 05/25/2017 02:10 PM Electronically Signed By:Jaclyn Macias
== END 2017-05-25 15:23 | DRG 518 ==
LOC: FSGY 05:14 → F3N 07:49 → F2W 08:08 → F3N 05-19 18:45
PROVIDERS: ADMIT Neurological Surgery; ATTEND Neurological Surgery
PROC: 01NB0ZZ Release Lumbar Nerve, Open Approach (ICD-10-PCS; principal; 2017-05-10 15:30)
PROC: 00NY0ZZ Release Lumbar Spinal Cord, Open Approach (ICD-10-PCS; principal; 2017-05-10 15:30)
PROC: 0J9D0ZZ Drainage of Right Upper Arm Subcutaneous Tissue and Fascia, Open Approach (ICD-10-PCS; principal; 2017-05-10 15:30)
DX: M48.06 Spinal stenosis, lumbar region (principal); G93.49 Other encephalopathy; L89.893 Pressure ulcer of other site, stage 3; I48.1 Persistent atrial fibrillation; S42.301A Unspecified fracture of shaft of humerus, right arm, initial encounter for closed fracture; T81.4XXA Infection following a procedure, initial encounter; M51.36 Other intervertebral disc degeneration, lumbar region; G47.33 Obstructive sleep apnea (adult) (pediatric); K21.9 Gastro-esophageal reflux disease without esophagitis; F31.9 Bipolar disorder, unspecified; G89.29 Other chronic pain; R29.6 Repeated falls; B95.7 Other staphylococcus as the cause of diseases classified elsewhere; F03.90 Unspecified dementia, unspecified severity, without behavioral disturbance, psychotic disturbance, mood disturbance, and anxiety; D63.8 Anemia in other chronic diseases classified elsewhere; E03.9 Hypothyroidism, unspecified; Z85.46 Personal history of malignant neoplasm of prostate
CPT/HCPCS: 92507-GN; 92523-GN; 97112-GP; 97116-GP; 97163-GP; 97166-GO; 97530-GO; 97530-GP; 97535-GO; G8978-GP-CL; G8978-GP-CM; G8979-GP-CJ; G8979-GP-CK; G8979-GP-CL; G8987-GO-CK; G8988-GO-CJ; G8988-GO-CK; G8989-GO-CI; G9168-GN-CK; G9169-GN-CJ; J0171; J0690; J1030; J1100; J1650; J2370; J2405; J2704; J3010